=== PATIENT | female | born 1935 | race Caucasian/White ===

== ENCOUNTER 2016-04-19 13:15 | Outpatient (RCR) | payer MEDICARE ==
[2016-04-19 13:33] LABS: BASOPHILS # (AUTO) 0.1 10^3/uL (0.0-0.1); BASOPHILS % (AUTO) 1 % (0-10); EOSINOPHILS # (AUTO) 0.1 10^3/uL (0.0-0.3); EOSINOPHILS % (AUTO) 1 % (0-10); LYMPHOCYTES # (AUTO) 2.7 X 10^3 (1.0-4.0); LYMPHOCYTES % (AUTO) 25 % (12-44); MEAN CORPUSCULAR HEMOGLOBIN 31 PG (25-34); MEAN CORPUSCULAR HGB CONC 35 G/DL (32-36); MEAN CORPUSCULAR VOLUME 90 FL (80-99); MEAN PLATELET VOLUME 10.3 FL (7.4-10.4); MONOCYTES # (AUTO) 0.7 X 10^3 (0.0-1.0); MONOCYTES % (AUTO) 6 % (0-12); NEUTROPHILS # (AUTO) 7.4 X 10^3 (1.8-7.8); NEUTROPHILS % (AUTO) 68 % (42-75); PLATELET COUNT 191 10^3/uL (130-400); RED BLOOD COUNT 4.44 10^6/uL (4.35-5.85); RED CELL DISTRIBUTION WIDTH 13.4 % (10.0-14.5); WHITE BLOOD COUNT 10.9 10^3/uL (4.3-11.0)
[2016-04-19 14:26] LABS: ALANINE AMINOTRANSFERASE 17 U/L (0-55); ALBUMIN 4.4 G/DL (3.2-4.5); ANION GAP 9 MMOL/L (5-14); ASPARTATE AMINO TRANSFERASE 20 U/L (5-34); BILIRUBIN,TOTAL 0.4 MG/DL (0.1-1.0); BLOOD UREA NITROGEN 17 MG/DL (7-18); BUN/CREATININE RATIO 20; CALCIUM 9.6 MG/DL (8.5-10.1); CARBON DIOXIDE 23 MMOL/L (21-32); CHLORIDE 108 MMOL/L (98-107); CREATININE SERUM 0.87 MG/DL (0.60-1.30); GFR ESTIMATED > 60; GLUCOSE 132 MG/DL (70-105); POTASSIUM 4.1 MMOL/L (3.6-5.0); SODIUM 140 MMOL/L (135-145); TOTAL PROTEIN 7.6 G/DL (6.4-8.2)
== END 2016-07-18 | disposition home or self-care (01) ==
LOC: ONC 13:15
PROVIDERS: ATTEND Internal Medicine Hematology & Oncology
DX: Z08 Encounter for follow-up examination after completed treatment for malignant neoplasm (principal); Z85.3 Personal history of malignant neoplasm of breast; N18.3 Chronic kidney disease, stage 3 (moderate); I48.91 Unspecified atrial fibrillation; Z79.899 Other long term (current) drug therapy
CPT/HCPCS: 36415; 80053; 85025; 99213

== ENCOUNTER 2017-04-11 13:04 | Outpatient (RCR) | payer MEDICARE ==
[2017-04-11 13:32] LABS: BASOPHILS # (AUTO) 0.1 10^3/uL (0.0-0.1); BASOPHILS % (AUTO) 1 % (0-10); EOSINOPHILS # (AUTO) 0.2 10^3/uL (0.0-0.3); EOSINOPHILS % (AUTO) 2 % (0-10); HEMATOCRIT 39 % (35-52); HEMOGLOBIN 13.7 G/DL (11.5-16.0); LYMPHOCYTES # (AUTO) 2.7 X 10^3 (1.0-4.0); LYMPHOCYTES % (AUTO) 28 % (12-44); MEAN CORPUSCULAR HEMOGLOBIN 31 PG (25-34); MEAN CORPUSCULAR HGB CONC 35 G/DL (32-36); MEAN CORPUSCULAR VOLUME 88 FL (80-99); MEAN PLATELET VOLUME 10.4 FL (7.4-10.4); MONOCYTES # (AUTO) 0.7 X 10^3 (0.0-1.0); MONOCYTES % (AUTO) 7 % (0-12); NEUTROPHILS % (AUTO) 63 % (42-75); PLATELET COUNT 208 10^3/uL (130-400); RED BLOOD COUNT 4.45 10^6/uL (4.35-5.85); RED CELL DISTRIBUTION WIDTH 13.1 % (10.0-14.5); WHITE BLOOD COUNT 9.6 10^3/uL (4.3-11.0)
[2017-04-11 13:50] LABS: ALANINE AMINOTRANSFERASE 16 U/L (0-55); ALKALINE PHOSPHATASE 104 U/L (40-136); BILIRUBIN,TOTAL 0.3 MG/DL (0.1-1.0); BUN/CREATININE RATIO 22; CALCIUM 9.5 MG/DL (8.5-10.1); CARBON DIOXIDE 24 MMOL/L (21-32); CHLORIDE 109 MMOL/L (98-107); CREATININE SERUM 0.82 MG/DL (0.60-1.30); GFR ESTIMATED > 60; GLUCOSE 123 MG/DL (70-105); POTASSIUM 4.2 MMOL/L (3.6-5.0); SODIUM 141 MMOL/L (135-145); TOTAL PROTEIN 7.8 GM/DL (6.4-8.2)
== END 2017-07-10 | disposition home or self-care (01) ==
LOC: ONC 13:04
PROVIDERS: ATTEND Internal Medicine Hematology & Oncology
DX: Z08 Encounter for follow-up examination after completed treatment for malignant neoplasm (principal); Z85.3 Personal history of malignant neoplasm of breast; N18.3 Chronic kidney disease, stage 3 (moderate); I48.91 Unspecified atrial fibrillation; Z79.899 Other long term (current) drug therapy
CPT/HCPCS: 36591; 80053; 85025

== ENCOUNTER 2018-04-15 10:42 | Outpatient (RCR) | payer MEDICARE ==
[2018-04-15 11:36] LABS: BASOPHILS # (AUTO) 0.1 10^3/uL (0.0-0.1); BASOPHILS % (AUTO) 1 % (0-10); EOSINOPHILS # (AUTO) 0.1 10^3/uL (0.0-0.3); EOSINOPHILS % (AUTO) 1 % (0-10); HEMATOCRIT 40 % (35-52); HEMOGLOBIN 13.6 G/DL (11.5-16.0); LYMPHOCYTES # (AUTO) 2.5 X 10^3 (1.0-4.0); LYMPHOCYTES % (AUTO) 26 % (12-44); MEAN CORPUSCULAR HEMOGLOBIN 31 PG (25-34); MEAN CORPUSCULAR HGB CONC 34 G/DL (32-36); MEAN CORPUSCULAR VOLUME 91 FL (80-99); MEAN PLATELET VOLUME 10.7 FL (7.4-10.4); MONOCYTES # (AUTO) 0.7 X 10^3 (0.0-1.0); MONOCYTES % (AUTO) 8 % (0-12); NEUTROPHILS % (AUTO) 64 % (42-75); PLATELET COUNT 159 10^3/uL (130-400); WHITE BLOOD COUNT 9.3 10^3/uL (4.3-11.0)
[2018-04-15 12:01] LABS: ALANINE AMINOTRANSFERASE 9 U/L (0-55); ALBUMIN 4.3 GM/DL (3.2-4.5); ALKALINE PHOSPHATASE 88 U/L (40-136); BILIRUBIN,TOTAL 0.5 MG/DL (0.1-1.0); BUN/CREATININE RATIO 18; CALCIUM 9.6 MG/DL (8.5-10.1); CARBON DIOXIDE 26 MMOL/L (21-32); CHLORIDE 107 MMOL/L (98-107); CREATININE SERUM 0.83 MG/DL (0.60-1.30); GFR ESTIMATED > 60; GLUCOSE 131 MG/DL (70-105); POTASSIUM 3.9 MMOL/L (3.6-5.0); SODIUM 141 MMOL/L (135-145); TOTAL PROTEIN 7.6 GM/DL (6.4-8.2)
[2018-07-01] MEDS ORDERED: OMEP20CA12 PO (12:03)
[2018-07-01] MEDS ORDERED: AMLO10TA7 PO (12:03)
[2018-07-01] MEDS ORDERED: SERT50TA9 PO (12:03)
[2018-07-01] MEDS ORDERED: MIRA25TA PO (12:03)
[2018-07-01] MEDS ORDERED: AMIO200T4 PO (12:03)
[2018-07-09] MEDS ORDERED: TRAM50TA2 PO (11:05)
== END 2018-07-14 | disposition home or self-care (01) ==
LOC: ONC 10:42
PROVIDERS: ATTEND Internal Medicine Hematology & Oncology
DX: Z08 Encounter for follow-up examination after completed treatment for malignant neoplasm (principal); Z85.3 Personal history of malignant neoplasm of breast; N18.3 Chronic kidney disease, stage 3 (moderate); I48.91 Unspecified atrial fibrillation; Z79.899 Other long term (current) drug therapy
CPT/HCPCS: 36415; 80053; 85025

== ENCOUNTER 2018-07-01 12:00 | Outpatient (CLI) | payer MEDICARE ==
[~2018-07-01] VITALS: Ht 175.3 cm; Wt 63.5 kg
[2018-07-01] MEDS ORDERED: AMLO10TA7 PO (12:03)
[2018-07-01] MEDS ORDERED: AMIO200T4 PO (12:03)
[2018-07-01] MEDS ORDERED: OMEP20CA12 PO (12:03)
[2018-07-01] MEDS ORDERED: MIRA25TA PO (12:03)
[2018-07-01] MEDS ORDERED: SERT50TA9 PO (12:03)
== END 2018-07-01 13:20 | disposition home or self-care (01) ==
LOC: PREOP 12:00
PROVIDERS: ATTEND Surgery
DX: Z01.818 Encounter for other preprocedural examination (principal)

== ENCOUNTER 2018-07-09 08:01 | Day surgery (SDC) | payer MEDICARE ==
[~2018-07-09] VITALS: Ht 175.3 cm; Wt 63.5 kg
[~2018-07-09 08:01] MED LIST: AMIO200T4 PO; AMLO10TA7 PO; MIRA25TA PO; OMEP20CA12 PO; SERT50TA9 PO
--- OUTSIDE RECORDS SUMMARY | 2018-07-09 08:04 | XMS REPORT ---
Author Author [facility] Medical Staff Organization [facility] [employer] [facility] Address [address] [place], [place] [address] Phone [phone] Summary purpose TRANSITION OF CARE AUTO GENERATION Chief Complaint and Reason for Visit Admit Diagnosis 1 HEAD INJURY UNSPECIFIED Problem list No authorized problems tracked for continuity of care are available for this visit. Encounters No authorized problems tracked for encounter diagnoses are available for this visit. Medications No medications recorded for this patient visit Allergies, adverse reactions, alerts Allergen Category Ingredient Status Reaction Severity Onset Sulfa (Sulfonamide Antibiotics) Drug Allergy Sulfa (Sulfonamide Antibiotics) Confirmed or Verified morphine Drug Allergy morphine Confirmed or Verified Polytrim Drug Allergy Polytrim Confirmed or Verified Swelling Moderate Adult Polytrim Drug Allergy trimethoprim Confirmed or Verified Swelling Moderate Adult Polytrim Drug Allergy Polymyxin B Confirmed or Verified Swelling Moderate Adult Immunizations No immunizations recorded for this patient visit Relevant diagnostic tests and/or laboratory data No authorized results are available for this patient visit History of procedures Procedure Code Code Type Description Date Performed Performing Physician A0427 CPT-4 ALS1-EMERGENCY 12-16-2014 KALEB CORTEZ A0425 CPT-4 GROUND MILEAGE 12-16-2014 KALEB CORTEZ Functional status No functional or cognitive status observations are available for this visit. Vital signs No authorized vital signs are available for this visit. Social history No Social History or smoking status observations were recorded for this visit. ( Unknown if ever smoked.) Treatment Plan No treatment plan text is available for this visit. Hospital discharge instructions No discharge instruction text is available for this visit.
--- OUTSIDE RECORDS SUMMARY | 2018-07-09 08:05 | XMS REPORT ---
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 Name Role Phone Ludwin Leong PCP Ludwin Leong PreferredProvider Allergies and Adverse Reactions Name Reaction Notes Tape Poison andrzej Plan of Treatment Planned Activity Comments Planned Date Planned Time Plan/Goal MAMMOGRAPHY, UNILATERAL, DX DIGITAL 04/09/2018 12:00 AM Medications Active Name Start Date Estimated Completion Date SIG Comments Aspir-81 81 mg oral tablet,delayed release (DR/EC) take 1 tablet (81 mg ) by oral route once daily Pacerone 200 mg oral tablet 11/19/2012 take 1/2 tablet (200 mg) by oral route once daily sertraline 100 mg oral tablet 01/27/2014 TAKE ONE TABLET BY MOUTH TWICE DAILY omeprazole 20 mg oral capsule,delayed release(DR/EC) 05/02/2015 TAKE ONE CAPSULE BY MOUTH ONCE DAILY BEFORE A MEAL Diflucan 150 mg oral tablet 05/20/2017 take 1 tablet (150 mg) by oral route once levothyroxine 75 mcg oral tablet 10/31/2017 take 1 tablet daily Myrbetriq 25 mg oral tablet extended release 24 hr 03/18/2018 TAKE ONE TABLET BY MOUTH ONCE DAILY (SWALLOW WHOLE WITH WATER AND DO NOT CRUSH, CHEW, AND/OR DIVIDE) amlodipine 10 mg oral tablet 03/31/2018 TAKE ONE TABLET BY MOUTH ONCE DAILY Name Start Date Expiration Date SIG Comments NORVASC 5MG TAB 5 each 09/05/2010 10/05/2010 1QD - TAKE ONE TABLET BY MOUTH EVERY DAY Xanax 0.25 mg oral tablet 09/22/2010 10/14/2010 [id number] - TAKE ONE TABLET BY MOUTH EVERY 12 HOURS NEEDED FOR ANXIETY Celexa 20 mg oral tablet 12/15/2010 01/14/2011 take 1 tablet (20 mg) by oral route once daily in the evening for 30 days Zithromax Z-Jarad 250 mg oral tablet 05/16/2011 05/21/2011 take 2 tablets ( 500 mg) by oral route once daily for 1 day then 1 tablet (250 mg) by oral route once daily for 4 days sertraline 100 mg oral tablet 11/19/2012 11/14/2013 take 1 tablet bid levothyroxine 50 mcg oral tablet 02/11/2013 03/13/2013 TAKE ONE TABLET BY MOUTH EVERY DAY HYDROCHLOROTHIAZIDE 25MG TAB 25MG each 03/31/2013 04/30/2013 TAKE ONE TABLET BY MOUTH EVERY DAY Prilosec 20 mg oral capsule,delayed release(DR/EC) 12/14/2013 03/09/2015 take 1 capsule (20 mg) by oral route once daily before a meal for 90 days meloxicam 15 mg oral tablet 12/14/2013 12/09/2014 take 1 tablet (15 mg) by oral route once daily prn Zithromax Z-Jarad 250 mg oral tablet 06/01/2014 06/06/2014 take 2 tablets (500 mg) by oral route once daily for 1 day then 1 tablet (250 mg) by oral route once daily for 4 days prednisone 20 mg oral tablet 07/13/2014 07/23/2014 take 2 tablets (40 mg) by oral route once daily for 10 days Lotrisone 1-0.05 % topical cream 09/27/2014 11/22/2014 apply to the affected and surrounding areas of skin by topical route 2 times per day in the morning and evening for 2 weeks metoprolol succinate 50 mg oral tablet extended release 24 hr 12/22/201404/21 take 1 tablet (50 mg) by oral route once daily for 30 days sertraline 50 mg oral tablet 12/22/2014 11/17/2015 take 1 tablet by oral route 2 times a day for 30 days Valtrex 1 gram oral tablet 04/04/2015 04/24/2015 take 1 tablet (1,000 mg) by oral route 3 times per day for 10 days hydrochlorothiazide 25 mg oral tablet 02/14/2017 02/09/2018 TAKE ONE TABLET BY MOUTH ONCE DAILY alprazolam 0.25 mg oral tablet 03/08/2017 06/04/2017 TAKE ONE TABLET BY MOUTH EVERY 12 HOURS NEEDED FOR ANXIETY sertraline 50 mg oral tablet 04/17/2017 04/17/2017 TAKE ONE TABLET BY MOUTH TWICE DAILY donepezil 5 mg oral tablet 05/20/2017 06/19/2017 take 1 tablet (5 mg) by oral route once daily in the evening for 30 days omeprazole 20 mg oral capsule,delayed release(DR/EC) 08/09/2017 08/09/2017 TAKE ONE CAPSULE BY MOUTH ONCE DAILY BEFORE MEAL(S) Discontinued Name Start Date Discontinued Date SIG Comments clonidine HCl 0.1 mg oral tablet 01/30/2010 Diovan 320 mg oral tablet 11/19/2012 take 1 tablet (320 mg) by oral route once daily digoxin 250 mcg oral tablet 11/19/2012 take 1 tablet (250 mcg) by oral route once daily Hydrochlorothiazide Oral 11/19/2012 warfarin 5 mg oral tablet 08/24/2013 take 1 tablet (5 mg) by oral route once daily Levaquin 500 mg oral tablet 01/30/2010 take 1 tablet (500 mg) by oral route once daily for 10 days DIOVAN 320MG TAB 320 each 01/03/2010 02/02/2010 1QD - TAKE ONE TABLET BY MOUTH EVERY DAY Tylenol 325 mg oral tablet 01/30/2010 01/15/2013 take 1 - 2 tablets (325 -650 mg) by oral route every 4-6 hours as needed lisinopril 20 mg oral tablet 12/15/2010 11/19/2012 take 1 tablet (20 mg) by oral route once daily pravastatin 20 mg oral tablet 12/03/2016 take 1 tablet (20 mg) by oral route once daily Medrol (Jarad) 4 mg oral tablets,dose pack 01/15/2013 04/16/2013 take as directed for 6 days Norvasc oral Tablet 5 mg 03/01/2010 12/03/2016 Oral 1 tablet (5 mg) by oral route daily 1 metoprolol tartrate 50 mg oral tablet 02/14/2015 12/03/2016 TAKE ONE TABLET BY MOUTH TWICE DAILY sertraline 100 mg oral tablet 04/05/2015 12/03/2016 TAKE ONE TABLET BY MOUTH TWICE DAILY Problem List Description Status Onset Anxiety Active Heart disease Active Thyroid disorder Active Vital Signs Date Time BP-Sys(mm[Hg] BP-Velvet(mm[Hg]) HR(bpm) RR(rpm) Temp WT HT HC BMI BSA BMI Percentile O2 Sat(%) 05/20/2017 10:21:00 AM 145 mmHg 71 mmHg 74 bpm 18 rpm 97.6 F 147 lbs 66 in 23.7262 kg/m 1.7621 m 94 % 12/03/2016 2:17:00 PM 132 mmHg 62 mmHg 78 bpm 18 rpm 100.5 F 142.375 lbs 66 in 22.98 kg/m2 1.73 m2 94 % 04/04/2015 1:33:00 PM 126 mmHg 72 mmHg 67 bpm 18 rpm 97.7 F 161 lbs 66 in 25.9858 kg/m 1.8441 m 92 % 12/22/2014 10:43:00 AM 152 mmHg 70 mmHg 64 bpm 18 rpm 98.2 F 158 lbs 66 in 25.50 kg/m2 1.83 m2 09/23/2014 10:50:00 AM 128 mmHg 62 mmHg 64 bpm 16 rpm 97.8 F 165 lbs 66 in 26.6314 kg/m 1.8669 m 07/13/2014 1:57:00 PM 146 mmHg 82 mmHg 72 bpm 18 rpm 98.6 F 161 lbs 66 in 25.99 kg/m2 1.84 m2 12/14/2013 10:40:00 AM 136 mmHg 62 mmHg 64 bpm 18 rpm 98 F 161 lbs 66 in 25.9858 kg/m 1.8441 m 08/24/2013 1:25:00 PM 146 mmHg 90 mmHg 64 bpm 18 rpm 97.3 F 162.125 lbs 66 in 26.17 kg/m2 1.85 m2 97 % 04/16/2013 9:26:00 AM 128 mmHg 64 mmHg 72 bpm 18 rpm 98 F 162 lbs 66 in 26.1472 kg/m 1.8498 m 01/15/2013 11:20:00 AM 152 mmHg 70 mmHg 64 bpm 18 rpm 97.5 F 157 lbs 66 in 25.34 kg/m2 1.82 m2 11/19/2012 10:30:00 AM 148 mmHg 68 mmHg 64 bpm 18 rpm 98.2 F 155 lbs 66 in 25.0174 kg/m 1.8094 m 05/16/2011 2:05:00 PM 138 mmHg 74 mmHg 68 bpm 18 rpm 99.5 F 157.25 lbs 01/03/2011 2:48:00 PM 126 mmHg 68 mmHg 60 bpm 156 lbs 12/15/2010 10:53:00 AM 140 mmHg 70 mmHg 58 bpm 20 rpm 98.1 F 157 lbs 156.5 in 4.5068 kg/m 2.8042 m 05/17/2010 9:28:00 AM 136 mmHg 72 mmHg 64 bpm 16 rpm 97.4 F 158 lbs 03/23/2010 9:26:00 AM 142 mmHg 68 mmHg 64 bpm 20 rpm 97.4 F 153 lbs 03/01/2010 10:44:00 AM 170 mmHg 88 mmHg 72 bpm 20 rpm 97.9 F 155.4 lbs 02/07/2010 2:27:00 PM 142 mmHg 88 mmHg 60 bpm 20 rpm 97.1 F 150 lbs 02/02/2010 1:04:00 PM 142 mmHg 80 mmHg 74 bpm 18 rpm 98.2 F 151 lbs 01/30/2010 8:44:00 AM 138 mmHg 80 mmHg 64 bpm 20 rpm 97.7 F 155 lbs 11/23/2009 12:23:00 PM 164 mmHg 80 mmHg 78 bpm 20 rpm 98.1 F 158 lbs 07/14/2009 3:16:00 PM 156 mmHg 86 mmHg 80 bpm 98.9 F 156.5 lbs Social History Name Description Comments denies smoking denies alcohol use Lives with spouse Tobacco Never smoker History of Procedures Date Ordered Description Order Status 04/04/2015 12:00 AM Decadron, Per [address] [facility]# [address]-93 Reviewed 04/04/2015 12:00 AM Depo-Medrol, Per 80 Mg [facility]#[address]-14 Reviewed 04/04/2015 12:00 AM MAMMOGRAM ONE BREAST Reviewed 05/30/2011 12:00 AM ASSAY THYROID STIM HORMONE Reviewed 04/05/2016 12:00 AM MAMMOGRAM SCREENING Reviewed 12/03/2016 12:00 AM X-RAY EXAM OF PELVIS Reviewed 12/03/2016 12:00 AM X-RAY EXAM OF HIP Reviewed 03/18/2017 12:00 AM MAMMOGRAM SCREENING Returned 06/24/2012 12:00 AM Flu Injection 3 Years And Above [facility]# [address]-52 RHC Reviewed 08/24/2013 12:00 AM X-RAY EXAM OF HIP Reviewed 11/23/2009 12:00 AM ROUTINE VENIPUNCTURE Reviewed 11/23/2009 12:00 AM COMPLETE CBC W/AUTO DIFF WBC Reviewed 11/23/2009 12:00 AM COMPREHEN METABOLIC PANEL Reviewed 11/23/2009 12:00 AM CHEST X-RAY 2VW FRONTAL&LATL Reviewed 11/23/2009 12:00 AM THER/PROPH/DIAG INJ SC/IM Reviewed 11/23/2009 12:00 AM Bicillin CR (1.2) [facility]# [id number][facility] Reviewed 05/17/2010 12:00 AM FLU VACCINE 3 YRS & > IM Reviewed 04/13/2014 12:00 AM COMPUTER DX MAMMOGRAM ADD-ON Reviewed 09/23/2014 12:00 AM Decadron [address] [facility]# [address]-20 Reviewed 09/23/2014 12:00 AM Depo-Medrol [address] [facility]#[address]-88 Reviewed 01/03/2011 12:00 AM Decadron Inj.1mg-([place]) [facility] #[id number] Reviewed 01/03/2011 12:00 AM Depo-Medrol 80 Mg Im/[facility] [place] [facility] [id number] Reviewed 12/22/2014 12:00 AM COMPLETE CBC W/AUTO DIFF WBC Reviewed 12/22/2014 12:00 AM COMPREHEN METABOLIC PANEL Reviewed 12/22/2014 12:00 AM ASSAY THYROID STIM HORMONE Reviewed 12/22/2014 12:00 AM CHEST X-RAY 2VW FRONTAL&LATL Reviewed 12/22/2014 12:00 AM PNEUMOCOCCAL VACC 13 THUAN IM Reviewed 12/22/2014 12:00 AM TDAP VACCINE 7 YRS/> IM Reviewed Results Summary Date and Description Results 11/23/2009 1:10 PM WBC 18.8 RBC 4.01 HGB 13.30 g/dLHCT 38.20 %MCV 95.0 fLMCH 33.20 pgMCHC 34.80 g/dLRDW SD 45 RDW CV 13.0 %MPV 10.40 fLPLT 200 NRBC# 0.00 NRBC% 0.0 %NEUT 83.70 %%LYMP 9.60 %%MONO 6.10 %%EOS 0.40 %%BASO 0.20 %#NEUT 15.69 #LYMP 1.81 #MONO 1.14 #EOS 0.08 #BASO 0.04 MANUAL DIFF PENDING GLUCOSE 98.0 mg/dLSODIUM 140.0 mmol/LPOTASSIUM 3.40 mmol/LCHLORIDE 105.0 mmol/LCO2 25.0 mmol/LBUN 15.0 mg/dLCREATININE 0.80 mg/dLSGOT/AST 22.0 IU/LSGPT/ALT 22.0 IU/ LALK PHOS 97.0 IU/LTOTAL PROTEIN 7.90 g/dLALBUMIN 4.0 g/dLTOTAL BILI 0.50 mg/ dLCALCIUM 9.30 mg/dLAGE 74 GFR NonAA 70 GFR AA 85 eGFR >60 mL/min/1.73 m2eGFR AA * >60 12/22/2014 11:55 AM GLUCOSE 108.0 mg/dLSODIUM 142.0 mmol/LPOTASSIUM 4.0 mmol/ LCHLORIDE 108.0 mmol/LCO2 24.0 mmol/LBUN 16.0 mg/dLCREATININE 0.80 mg/dLSGOT/ AST 17.0 IU/LSGPT/ALT 17.0 IU/LALK PHOS 75.0 IU/LTOTAL PROTEIN 6.70 g/dLALBUMIN 3.90 g/dLTOTAL BILI 0.80 mg/dLCALCIUM 9.20 mg/dLAGE 79 GFR NonAA 69 GFR AA 84 eGFR >60 mL/min/1.73 m2eGFR AA* >60 WBC 10.0 RBC 3.95 HGB 12.50 g/dLHCT 36.60 % MCV 93.0 fLMCH 31.60 pgMCHC 34.20 g/dLRDW SD 47 RDW CV 14.0 %MPV 10.20 fLPLT 178 NRBC# 0.00 NRBC% 0.0 %NEUT 65.40 %%LYMP 24.0 %%MONO 7.80 %%EOS 2.30 %%BASO 0.50 %#NEUT 6.55 #LYMP 2.40 #MONO 0.78 #EOS 0.23 #BASO 0.05 MANUAL DIFF NOT IND TSH 3.320 uIU/mL History Of Immunizations Name Date Admin Mfg Name Mfg Code Trade Name Lot# Route Inj Vis Given Vis Pub CVX Influenza 06/24/2012 sanofi pasteur PMC FLUZONE [id number] Intramuscular Left Arm 06/24/2012 12/03/2011 141 Tdap 12/22/2014 sanofi pasteur PMC ADACEL [id number] Intramuscular Left Deltoid 12/22/2014 10/09/2012 115 X 12/22/2014 Hlbqg-Vlaqbb-Mitzgom-Praxis WAL Prevnar [id number] Intramuscular Right Deltoid 12/22/2014 07/30/2012 100 Pneumococcal 12/22/2014 Nfnhn-Vtujvh-Vwjkass-Praxis WAL PREVNAR 13 [id number] Intramuscular Right Deltoid 12/22/2014 07/30/2012 133 X 12/22/2014 Sfzvh-Zwuciq-Mktijdt-Praxis WAL PREVNAR 13 [id number] Intramuscular Right Deltoid 12/22/2014 07/30/2012 133 Tdap 12/22/2014 sanofi pasteur PMC ADACEL [id number] Intramuscular Left Deltoid 12/22/2014 07/30/2012 115 Influenza 04/01/2015 Not Entered NE Not Entered Not Entered Not Entered 06/03/2017 06/03/2017 141 Influenza 01/19/2016 Not Entered NE FLUZONE Intramuscular Right Arm 06/03/2017 141 Influenza 01/30/2017 [employer] pasteur PMC FLUZONE-HIGH DOSE UI 824 AA Intramuscular Right Arm 03/14/2017 01/07/2015 135 History of Past Illness Name Date of Onset Comments Anxiety Breast disorder, unspecified Cancer Heart disease Thyroid disorder Hypertension Jul 14 2009 3:29PM Depression and anxiety Jul 14 2009 3:29PM Sinusitis, Acute Nov 23 2009 12:57PM Pharyngitis, Acute Nov 23 2009 12:57PM Sinusitis, Acute Nov 23 2009 12:28PM Pharyngitis, Acute Nov 23 2009 12:28PM Cough Nov 23 2009 12:28PM Hypertension Jan 30 2010 8:53AM Atrial Fibrillation Jan 30 2010 8:53AM Osteoarthritis Jan 30 2010 8:53AM Essential Hypertension Feb 02 2010 1:07PM Hypertension Feb 07 2010 2:32PM Essential Hypertension Mar 01 2010 10:50AM Hypertension Mar 23 2010 9:29AM Hypertension May 17 2010 9:27AM Flu May 17 2010 9:27AM Hypertension GERD Atrial fibrillation Depression Hard of hearing, bilateral Contact Dermatitis Jan 03 2011 2:45PM Hypertension Dec 15 2010 10:54AM Osteoarthritis Dec 15 2010 10:54AM Hypothyroidism, Acquired May 16 2011 2:09PM Upper Respiratory Infections May 16 2011 2:09PM Flu Jul 14 2012 9:35AM Hypertension Nov 19 2012 10:40AM Depression and anxiety Nov 19 2012 10:40AM Gout Jan 15 2013 11:26AM Atrial Fibrillation Apr 16 2013 9:36AM Other fall from one level to another Apr 16 2013 9:36AM Head Injury, Closed (No LOC) Apr 16 2013 9:36AM Pain in joint; Left Hip Aug 24 2013 1:34PM Contusion of head Apr 16 2013 9:36AM OA (osteoarthritis) of hip Dec 14 2013 10:47AM Screening Mammogram For High Risk Patient Apr 13 2014 1:02PM Shingles Jul 13 2014 2:01PM Rhus dermatitis Sep 23 2014 10:58AM Hypertension Dec 22 2014 10:53AM Hypothyroidism, Acquired Dec 22 2014 10:53AM Fall Dec 22 2014 10:53AM Cough Dec 22 2014 10:53AM Concussion Dec 27 2014 2:02PM Head Open Wound Dec 27 2014 2:02PM Shingles Apr 04 2015 1:36PM Screening Mammogram For High Risk Patient Apr 04 2015 4:57PM Screening Mammogram For High Risk Patient Apr 05 2016 2:30PM Right hip pain Dec 03 2016 2:35PM Screening Mammogram For High Risk Patient Mar 18 2017 2:02PM Dementia May 20 2017 10:22AM Overactive bladder May 20 2017 10:22AM Thrush May 20 2017 10:22AM Screening mammogram for high-risk patient Apr 09 2018 3:13PM Payers Insurance Name Company Name Plan Name Plan Number Policy Number Policy Group Number Start Date Medicare Part A Medicare Part A [id number] N/A [facility] [id number] June Medicare Part A Medicare Part A [id number] N/A Medicare Part A Medicare - Lab/Xray [id number] N/A Medicare Part B Medicare Of [place] [id number] Sunday, May 03, 1998 History of Encounters Visit Date Visit Type Provider 05/20/2017 Office visit Ludwin Leong MD 12/03/2016 Office visit Tyler Conley NP 04/04/2015 Office visit Ludwin Leong MD 12/27/2014 Office visit Candido August MD 12/22/2014 Office visit 12/22/2014 Office visit Ludwin Leong MD 12/17/2014 [facility] Candido August MD 09/23/2014 Office visit Ludwin Leong MD 07/13/2014 Office visit Ludwin Leong MD 12/14/2013 Office visit Ludwin Leong MD 08/24/2013 Office visit Ludwin Leong MD 04/16/2013 Office visit Ludwin Leong MD 01/15/2013 Office visit Ludwin Leong MD 11/19/2012 Office visit Ludwin Leong MD 06/24/2012 Nurse visit Ludwin Leong MD 05/16/2011 Office visit Willa Alford APRN 01/03/2011 Office visit Candido Oliva PA-C 12/15/2010 Office visit Ludwin Leong MD 05/17/2010 Office visit Ludwin Leong MD 03/23/2010 Office visit Ludwin Leong MD 03/01/2010 Office visit Ludwin Leong MD 02/07/2010 Office visit Ludwin Leong MD 02/02/2010 Office visit Ludwin Leong MD 01/30/2010 Office visit Ludwin Leong MD 11/23/2009 Office visit Zelda WIGGINS 07/14/2009 Office visit Ludwin Leong MD 02/18/2009 Office visit Ludwin Leong MD
--- OUTSIDE RECORDS SUMMARY | 2018-07-09 08:05 | XMS REPORT ---
Author Author Ludwin Leong [facility] Address [address] [place], [place] [address] Care Team Providers Care Tourist Camp Attendant Name Role Phone Ludwin Leong PCP Ludwin [...] Xanax 0.25 mg oral tablet 09/22/2010 10/14/2010 [id number] - TAKE ONE TABLET BY MOUTH EVERY [...] 04/04/2015 12:00 AM Decadron, Per 1 Mg [facility]# [address]-13 Reviewed 04/04/2015 12:00 AM Depo-Medrol, Per 80 Mg [facility]#[address]-24 Reviewed 04/04/2015 12:00 AM MAMMOGRAM ONE BREAST Reviewed 05/30/2011 12:00 AM ASSAY THYROID STIM HORMONE Reviewed 04/05/2016 12:00 AM MAMMOGRAM SCREENING Reviewed 12/03/2016 12:00 AM X-RAY EXAM OF PELVIS Reviewed 12/03/2016 12:00 AM X-RAY EXAM OF HIP Reviewed 03/18/2017 12:00 AM MAMMOGRAM SCREENING Returned 06/24/2012 12:00 AM Flu Injection 3 Years And Above [facility]# [address]-00 RHC Reviewed 08/24/2013 12:00 AM X-RAY EXAM OF HIP Reviewed 11/23/2009 12:00 AM ROUTINE VENIPUNCTURE Reviewed 11/23/2009 12:00 AM COMPLETE CBC W/AUTO DIFF WBC Reviewed 11/23/2009 12:00 AM COMPREHEN METABOLIC PANEL Reviewed 11/23/2009 12:00 AM CHEST X-RAY 2VW FRONTAL&LATL Reviewed 11/23/2009 12:00 AM THER/PROPH/DIAG INJ SC/IM Reviewed 11/23/2009 12:00 AM Bicillin CR (1.2) [facility]# [id number]--[facility] Reviewed 05/17/2010 12:00 AM FLU VACCINE 3 YRS & > IM Reviewed 04/13/2014 12:00 AM COMPUTER DX MAMMOGRAM ADD-ON Reviewed 09/23/2014 12:00 AM Decadron 8 mg [facility]# [address]-59 Reviewed 09/23/2014 12:00 AM Depo-Medrol 80 mg [facility]#[address]-81 Reviewed 01/03/2011 12:00 AM Decadron Inj.1mg-([place]) [facility] #[id number] Reviewed 01/03/2011 12:00 AM Depo-Medrol 80 Mg Im/[facility] [place] [facility] [id number] Reviewed 12/22/2014 12:00 AM COMPLETE CBC W/AUTO [...] CVX Influenza 06/24/2012 sanofi pasteur PMC FLUZONE [id number] Intramuscular Left Arm 06/24/2012 12/03/2011 141 Tdap 12/22/2014 sanofi pasteur PMC ADACEL [id number] Intramuscular Left Deltoid 12/22/2014 10/09/2012 115 X 12/22/2014 Bdhyr-Nymgya-Qpitxml-Praxis WAL Prevnar [id number] Intramuscular Right Deltoid 12/22/2014 07/30/2012 100 Pneumococcal 12/22/2014 Pggar-Arycvm-Rebczvr-Praxis WAL PREVNAR 13 [id number] Intramuscular Right Deltoid 12/22/2014 07/30/2012 133 X 12/22/2014 Iispg-Opmodo-Abscbze-Praxis WAL PREVNAR 13 [id number] Intramuscular Right Deltoid 12/22/2014 07/30/2012 133 Tdap 12/22/2014 sanofi pasteur PMC ADACEL [id number] Intramuscular Left Deltoid 12/22/2014 07/30/2012 115 Influenza 04/01/2015 Not Entered NE Not Entered Not Entered Not Entered 06/03/2017 06/03/2017 141 Influenza 01/19/2016 Not Entered NE FLUZONE Intramuscular Right Arm 06/03/2017 141 Influenza 01/30/2017 [employer] pasteur PMC FLUZONE-HIGH DOSE UI 824 AA [...] Date Medicare Part A Medicare Part A [id number] N/A [facility] [id number] June Medicare Part A Medicare Part A [id number] N/A Medicare Part A Medicare - Lab/Xray [id number] N/A Medicare Part B Medicare Of [place] [id number] Sunday, May 03, 1998 History of Encounters Visit Date Visit Type Provider 05/20/2017 Office visit Ludwin Leong MD 12/03/2016 Office visit Tyler Conley NP 04/04/2015 Office visit Ludwin Leong MD 12/27/2014 Office visit Candido August MD 12/22/2014 Office visit 12/22/2014 Office visit Ludwin Leong MD 12/17/2014 [facility] Candido August MD 09/23/2014 Office visit Ludwin Leong MD 07/13/2014 Office visit Ludwin Leong MD 12/14/2013 Office visit Ludwin Leong MD 08/24/2013 Office visit Ludwin Leong MD 04/16/2013 Office visit Ludwin Leong MD 01/15/2013 Office visit Ludwin Leong MD 11/19/2012 Office visit Ludwin Leong MD 06/24/2012 Nurse visit Ludwin Leong MD 05/16/2011 Office visit Willa Alford APRN 01/03/2011 Office visit Candido Olvia PA-C 12/15/2010 Office visit Ludwin Leong MD [...]
--- OUTSIDE RECORDS SUMMARY | 2018-07-09 08:06 | XMS REPORT ---
Author Author Ludwin Leong [facility] Address [address] [place], [place] [id number] Care Team Providers Care Vp Corporate Development Name Role Phone Ludwin Leong PCP Unavailable Ludwin Leong PreferredProvider Unavailable Allergies and Adverse Reactions Name Reaction Notes Tape Plan of Treatment Planned Activity Comments Planned Date Planned Time Plan/Goal Diagnostic Mammogram 04/05/2016 12:00 AM Medications Active Name Start Date Estimated Completion Date SIG Comments Aspir-81 81 mg oral tablet,delayed release (DR/EC) take 1 tablet (81 mg ) by oral route once daily pravastatin 20 mg oral tablet take 1 tablet (20 mg) by oral route once daily Pacerone 200 mg oral tablet 11/19/2012 take 1/2 tablet (200 mg) by oral route once daily sertraline 100 mg oral tablet 01/27/2014 TAKE ONE TABLET BY MOUTH TWICE DAILY Norvasc oral Tablet 5 mg 03/01/2010 Oral 1 tablet (5 mg) by oral route daily 1 metoprolol tartrate 50 mg oral tablet 02/14/2015 TAKE ONE TABLET BY MOUTH TWICE DAILY levothyroxine 50 mcg oral tablet 03/22/2015 TAKE ONE TABLET BY MOUTH EVERY DAY sertraline 100 mg oral tablet 04/05/2015 TAKE ONE TABLET BY MOUTH TWICE DAILY omeprazole 20 mg oral capsule,delayed release(DR/EC) 05/02/2015 TAKE ONE CAPSULE BY MOUTH ONCE DAILY BEFORE A MEAL hydrochlorothiazide 25 mg oral tablet 10/03/2015 TAKE ONE TABLET BY MOUTH EVERY DAY amlodipine 10 mg oral tablet 12/07/2015 TAKE ONE TABLET BY MOUTH ONCE DAILY sertraline 50 mg oral tablet 03/20/2016 TAKE ONE TABLET BY MOUTH TWICE DAILY Name Start Date Expiration Date SIG Comments NORVASC 5MG TAB 5 each 09/05/2010 10/05/2010 1QD - TAKE ONE TABLET BY MOUTH EVERY DAY Xanax 0.25 mg oral tablet 09/22/2010 10/14/2010 [id number] - TAKE ONE TABLET BY MOUTH EVERY [...] 3 times per day for 10 days alprazolam 0.25 mg oral tablet 06/15/2015 09/11/2015 TAKE ONE TABLET BY MOUTH EVERY 12 HOURS NEEDED FOR ANXIETY Discontinued Name Start Date Discontinued Date SIG [...] 04/16/2013 take as directed for 6 days Problem List Description Status Onset Anxiety Active Heart disease Active Thyroid disorder Active Vital Signs Date Time BP-Sys(mm[Hg] BP-Velvet(mm[Hg]) HR(bpm) RR(rpm) Temp WT HT HC BMI BSA BMI Percentile O2 Sat(%) 04/04/2015 1:33:00 PM 126 mmHg 72 mmHg 67 bpm 18 rpm 97.7 F 161 lbs 66 in 25.99 kg/m2 1.84 m2 92 % 12/22/2014 10:43:00 AM 152 mmHg 70 mmHg 64 bpm 18 rpm 98.2 F 158 lbs 66 in 25.5016 kg/m 1.8268 m 09/23/2014 10:50:00 AM 128 mmHg 62 mmHg 64 bpm 16 rpm 97.8 F 165 lbs 66 in 26.63 kg/m2 1.87 m2 07/13/2014 1:57:00 PM 146 mmHg 82 mmHg 72 bpm 18 rpm 98.6 F 161 lbs 66 in 25.9858 kg/m 1.8441 m 12/14/2013 10:40:00 AM 136 mmHg 62 mmHg 64 bpm 18 rpm 98 F 161 lbs 66 in 25.99 kg/m2 1.84 m2 08/24/2013 1:25:00 PM 146 mmHg 90 mmHg 64 bpm 18 rpm 97.3 F 162.125 lbs 66 in 26.1674 kg/m 1.8505 m 97 % 04/16/2013 9:26:00 AM 128 mmHg 64 mmHg 72 bpm 18 rpm 98 F 162 lbs 66 in 26.15 kg/m2 1.85 m2 01/15/2013 11:20:00 AM 152 mmHg 70 mmHg 64 bpm 18 rpm 97.5 F 157 lbs 66 in 25.3402 kg/m 1.821 m 11/19/2012 10:30:00 AM 148 mmHg 68 mmHg 64 bpm 18 rpm 98.2 F 155 lbs 66 in 25.02 kg/m2 1.81 m2 05/16/2011 2:05:00 PM 138 mmHg 74 mmHg [...] 04/04/2015 12:00 AM Decadron, Per 1 Mg NDC# [address]-46 Reviewed 04/04/2015 12:00 AM Depo-Medrol, Per 80 Mg [facility]#[address]-01 Reviewed 04/04/2015 12:00 AM MAMMOGRAM ONE BREAST Reviewed 05/30/2011 12:00 AM ASSAY THYROID STIM HORMONE Reviewed 06/24/2012 12:00 AM Flu Injection 3 Years And Above [facility]# [address]-81 RHC Reviewed 08/24/2013 12:00 AM X-RAY EXAM OF HIP Reviewed 11/23/2009 12:00 AM ROUTINE VENIPUNCTURE Reviewed 11/23/2009 12:00 AM COMPLETE CBC W/AUTO DIFF WBC Reviewed 11/23/2009 12:00 AM COMPREHEN METABOLIC PANEL Reviewed 11/23/2009 12:00 AM CHEST X-RAY 2VW FRONTAL&LATL Reviewed 11/23/2009 12:00 AM THER/PROPH/DIAG INJ SC/IM Reviewed 11/23/2009 12:00 AM Bicillin CR (1.2) [facility]# [id number]--[facility] Reviewed 05/17/2010 12:00 AM FLU VACCINE 3 YRS & > IM Reviewed 04/13/2014 12:00 AM COMPUTER DX MAMMOGRAM ADD-ON Reviewed 09/23/2014 12:00 AM Decadron 8 mg [facility]# [address]-61 Reviewed 09/23/2014 12:00 AM Depo-Medrol 80 mg [facility]#[address]-76 Reviewed 01/03/2011 12:00 AM Decadron Inj.1mg-([place]) [facility] #[id number] Reviewed 01/03/2011 12:00 AM Depo-Medrol 80 Mg Im/[facility] [place] [facility] [id number] Reviewed 12/22/2014 12:00 AM COMPLETE CBC W/AUTO DIFF WBC Reviewed 12/22/2014 12:00 AM COMPREHEN METABOLIC PANEL Reviewed 12/22/2014 12:00 AM ASSAY THYROID STIM HORMONE Reviewed 12/22/2014 12:00 AM CHEST X-RAY 2VW FRONTAL&LATL Reviewed 12/22/2014 12:00 AM PNEUMOCOCCAL VACC 13 THUAN IM Reviewed 12/22/2014 12:00 AM TDAP VACCINE 7 YRS/> IM Reviewed Results Summary Data and Description Results 11/23/2009 1:10 PM WBC [...] MANUAL DIFF NOT IND TSH 3.320 uIU/mL 06/06/2015 10:10 AM GLUCOSE 98.0 mg/dLSODIUM 145.0 mmol/LPOTASSIUM 4.40 mmol/ LCHLORIDE 112.0 mmol/LCO2 25.0 mmol/LBUN 17.0 mg/dLCREATININE 0.80 mg/dLCALCIUM 9.10 mg/dLAGE 80 GFR NonAA 69 GFR AA 84 eGFR >60 mL/min/1.73meGFR AA* >60 WBC 9.1 RBC 4.25 HGB 13.70 g/dLHCT 40.30 %MCV 95.0 fLMCH 32.20 pgMCHC 34.0 g/dLRDW SD 55 RDW CV 16.10 %MPV 11.20 fLPLT 191 NRBC# 0.00 NRBC% 0.0 %NEUT 64.80 %%LYMP 25.10 %%MONO 7.60 %%EOS 2.10 %%BASO 0.40 %#NEUT 5.89 #LYMP 2.28 #MONO 0.69 #EOS 0.19 #BASO 0.04 MANUAL DIFF NOT IND 04/05/2016 12:39 PM WBC 11.7 RBC 4.42 HGB 13.50 g/dLHCT 39.90 %MCV 90.0 fLMCH 30.50 pgMCHC 33.80 g/dLRDW SD 44 RDW CV 13.20 %MPV 10.90 fLPLT 187 NRBC# 0.00 NRBC% 0.0 %NEUT 60.90 %%LYMP 30.50 %%MONO 6.30 %%EOS 1.20 %%BASO 0.70 %#NEUT 7.12 #LYMP 3.57 #MONO 0.74 #EOS 0.14 #BASO 0.08 MANUAL DIFF NOT IND GLUCOSE 105.0 mg/dLSODIUM 142.0 mmol/LPOTASSIUM 3.60 mmol/LCHLORIDE 107.0 mmol/LCO2 25.0 mmol/LBUN 20.0 mg/dLCREATININE 0.90 mg/dLSGOT/AST 26.0 IU/LSGPT/ALT 23.0 IU /LALK PHOS 101.0 IU/LTOTAL PROTEIN 7.90 g/dLALBUMIN 4.40 g/dLTOTAL BILI 0.50 mg/ dLCALCIUM 9.50 mg/dLAGE 80 GFR NonAA 60 GFR AA 73 eGFR 60 eGFR AA* >60 TSH 7.0 uIU/mL History Of Immunizations Name Date Admin Mfg Name Mfg Code Trade Name Lot# Route Inj Vis Given Vis Pub CVX Influenza 06/24/2012 sanofi pasteur PMC Fluzone [id number] Intramuscular Left Arm 06/24/2012 12/03/2011 141 Tdap 12/22/2014 sanofi pasteur PMC ADACEL [id number] Intramuscular Left Deltoid 12/22/2014 10/09/2012 115 X 12/22/2014 Eqlju-Wtdkbh-Oulklvf-Praxis WAL Prevnar [id number] Intramuscular Right Deltoid 12/22/2014 07/30/2012 100 Pneumococcal 12/22/2014 Fjytw-Uspyff-Vzzdusk-Praxis WAL Prevnar 13 [id number] Intramuscular Right Deltoid 12/22/2014 07/30/2012 133 X 12/22/2014 Fuivx-Xsklff-Svkqxrd-Praxis WAL Prevnar 13 [id number] Intramuscular Right Deltoid 12/22/2014 07/30/2012 133 Tdap 12/22/2014 sanofi pasteur PMC ADACEL [id number] Intramuscular Left Deltoid 12/22/2014 07/30/2012 115 Influenza 04/01/2015 Not Entered NE Not Entered Not Entered Not Entered 06/03/2015 06/03/2015 141 Influenza 01/19/2016 Not Entered NE Fluzone Intramuscular Right Arm 06/03/2015 141 History of Past Illness Name Date of [...] 2010 9:27AM Flu May 17 2010 9:27AM Contact Dermatitis Jan 03 2011 2:45PM Hypertension [...] High Risk Patient Apr 05 2016 2:30PM Payers Insurance Name Company Name Plan Name Plan Number Policy Number Policy Group Number Start Date Medicare Part A Medicare Part A [id number] N/A [facility] [id number] June Medicare Part A Medicare Part A [id number] N/A Medicare Part A Medicare - Lab/Xray [id number] N/A Medicare Part B Medicare Of [place] [id number] Sunday, May 03, 1998 History of Encounters Visit Date Visit Type Provider 04/04/2015 Office visit Ludwin Leong MD 12/27/2014 Office visit Candido August MD 12/22/2014 Office visit 12/22/2014 Office visit Ludwin Leong MD 12/17/2014 Hospital Candido August MD 09/23/2014 Office visit [...]
--- OUTSIDE RECORDS SUMMARY | 2018-07-09 08:06 | XMS REPORT ---
Author Author Ludwin Leong [facility] Address [address] [place], [place] [id number] Care Team Providers Care Assistant Oceanographer Name Role Phone Ludwin Leong PCP Unavailable Allergies and Adverse Reactions Name Reaction Notes Tape Plan of Treatment Not available. Medications Active Name Start Date Estimated Completion Date SIG Comments Aspir-81 Oral Tablet, Delayed Release (E.C.) mg take 1 tablet (81 mg) by oral route once daily pravastatin Oral tablet 20 mg take 1 tablet (20 mg) by oral route once daily Pacerone Oral tablet 200 mg 11/19/2012 take 1/2 tablet (200 mg) by oral route once daily Prilosec oral capsule,delayed release(DR/EC) 20 mg 12/14/2013 03/09/2015 take 1 capsule (20 mg) by oral route once daily before a meal for 90 days sertraline oral tablet 100 mg 01/27/2014 TAKE ONE TABLET BY MOUTH TWICE DAILY Norvasc oral Tablet 5 mg 03/01/2010 Oral 1 tablet (5 mg) by oral route daily 1 metoprolol succinate oral tablet extended release 24 hr 50 mg 12/22/201404/21 take 1 tablet (50 mg) by oral route once daily for 30 days sertraline oral tablet 50 mg 12/22/2014 11/17/2015 take 1 tablet by oral route 2 times a day for 30 days Name Start Date Expiration Date SIG Comments NORVASC 5MG TAB 5 each 09/05/2010 10/05/2010 1QD - TAKE ONE TABLET BY MOUTH EVERY DAY Xanax Oral Tablet 0.25 mg 09/22/2010 10/14/2010 [id number] - TAKE ONE TABLET BY MOUTH EVERY 12 HOURS NEEDED FOR ANXIETY Celexa Oral Tablet 20 mg 12/15/2010 01/14/2011 take 1 tablet (20 mg) by oral route once daily in the evening for 30 days Zithromax Z-Jarad Oral Tablet 250 mg 05/16/2011 05/21/2011 take 2 tablets ( 500 mg) by oral route once daily for 1 day then 1 tablet (250 mg) by oral route once daily for 4 days sertraline Oral tablet 100 mg 11/19/2012 11/14/2013 take 1 tablet bid levothyroxine oral tablet 50 mcg 02/11/2013 03/13/2013 TAKE ONE TABLET BY MOUTH EVERY DAY HYDROCHLOROTHIAZIDE 25MG TAB 25MG each 03/31/2013 04/30/2013 TAKE ONE TABLET BY MOUTH EVERY DAY alprazolam Oral tablet 0.25 mg 05/18/2013 08/14/2013 TAKE ONE TABLET BY MOUTH EVERY 12 HOURS NEEDED FOR ANXIETY meloxicam oral tablet 15 mg 12/14/2013 12/09/2014 take 1 tablet (15 mg) by oral route once daily prn Zithromax Z-Jarad oral tablet 250 mg 06/01/2014 06/06/2014 take 2 tablets (500 mg) by oral route once daily for 1 day then 1 tablet (250 mg) by oral route once daily for 4 days Valtrex oral tablet 1 gram 07/13/2014 08/02/2014 take 1 tablet (1,000 mg) by oral route 3 times per day for 10 days prednisone oral tablet 20 mg 07/13/2014 07/23/2014 take 2 tablets (40 mg) by oral route once daily for 10 days Lotrisone topical cream 1-0.05 % 09/27/2014 11/22/2014 apply to the affected and surrounding areas of skin by topical route 2 times per day in the morning and evening for 2 weeks Discontinued Name Start Date Discontinued Date SIG Comments Clonidine Oral Tablet 0.1 mg 01/30/2010 Diovan Oral Tablet 320 mg 11/19/2012 take 1 tablet (320 mg) by oral route once daily Digoxin Oral Tablet 250 mcg 11/19/2012 take 1 tablet (250 mcg) by oral route once daily Hydrochlorothiazide Oral 11/19/2012 Warfarin Oral Tablet 5 mg 08/24/2013 take 1 tablet (5 mg) by oral route once daily Levaquin Oral Tablet 500 mg 01/30/2010 take 1 tablet (500 mg) by oral route once daily for 10 days DIOVAN 320MG TAB 320 each 01/03/2010 02/02/2010 1QD - TAKE ONE TABLET BY MOUTH EVERY DAY Tylenol Oral Tablet 325 mg 01/30/2010 01/15/2013 take 1 - 2 tablets (325 -650 mg) by oral route every 4-6 hours as needed lisinopril Oral Tablet 20 mg 12/15/2010 11/19/2012 take 1 tablet (20 mg) by oral route once daily Medrol (Jarad) Oral tablets,dose pack 4 mg 01/15/2013 04/16/2013 take as directed for 6 days Problem List Description Status Onset Anxiety Active Heart disease Active Thyroid disorder Active Vital Signs Date Time BP-Sys(mm[Hg] BP-Velvet(mm[Hg]) HR(bpm) RR(rpm) Temp WT HT HC BMI BSA BMI Percentile O2 Sat(%) 12/22/2014 10:43:00 AM 152 mmHg 70 mmHg [...] rpm 98.1 F 157 lbs 156.5 in 4.51 kg/m2 2.80 m2 05/17/2010 9:28:00 AM 136 mmHg 72 mmHg [...] of Procedures Date Ordered Description Order Status 05/30/2011 12:00 AM ASSAY THYROID STIM HORMONE Reviewed 06/24/2012 12:00 AM Flu Injection 3 Years And Above [facility]# [address]-98 RHC Reviewed 04/16/2013 12:00 AM Cardiology Consult Ordered 08/24/2013 12:00 AM X-RAY EXAM OF HIP Reviewed 11/23/2009 12:00 AM ROUTINE VENIPUNCTURE Reviewed 11/23/2009 12:00 AM COMPLETE CBC W/AUTO DIFF WBC Reviewed 11/23/2009 12:00 AM COMPREHEN METABOLIC PANEL Reviewed 11/23/2009 12:00 AM CHEST X-RAY 2VW FRONTAL&LATL Reviewed 11/23/2009 12:00 AM THER/PROPH/DIAG INJ SC/IM Reviewed 11/23/2009 12:00 AM Bicillin CR (1.2) [facility]# [id number]--[facility] Reviewed 05/17/2010 12:00 AM FLU VACCINE 3 YRS & > IM Reviewed 04/13/2014 12:00 AM COMPUTER DX MAMMOGRAM ADD-ON Reviewed 09/23/2014 12:00 AM Decadron 8 mg [facility]# [address]-98 Reviewed 09/23/2014 12:00 AM Depo-Medrol 80 mg [facility]#[address]-77 Reviewed 12/27/2014 12:00 AM PNEUMOCOCCAL VACC 13 THUAN IM Reviewed 12/27/2014 12:00 AM TDAP VACCINE 7 YRS/> IM Reviewed 01/03/2011 12:00 AM Decadron Inj.1mg-([place]) [facility] #[id number] Reviewed 01/03/2011 12:00 AM Depo-Medrol 80 Mg Im/[place] [facility] [id number] Reviewed 12/22/2014 12:00 AM COMPLETE CBC W/AUTO DIFF WBC Reviewed 12/22/2014 12:00 AM COMPREHEN METABOLIC PANEL Reviewed 12/22/2014 12:00 AM ASSAY THYROID STIM HORMONE Reviewed 12/22/2014 12:00 AM CHEST X-RAY 2VW FRONTAL&LATL Reviewed 12/22/2014 12:00 AM PNEUMOCOCCAL VACC 13 THUAN IM Ordered 12/22/2014 12:00 AM TDAP VACCINE 7 YRS/> IM Ordered Results Summary Data and Description Results 11/23/2009 1:10 PM WBC 18.8 RBC 4.01 HGB 13.30 g/dLHCT 38.20 %MCV 95.0 fLMCH 33.20 pgMCHC 34.80 g/dLRDW CV 13.0 %MPV 10.40 fLPLT 200 %NEUT 83.70 %%LYMP 9.60 %%MONO 6.10 %%EOS 0.40 %%BASO 0.20 %#NEUT 15.69 #LYMP 1.81 #MONO 1.14 #EOS 0.08 #BASO 0.04 GLUCOSE 98.0 mg/dLSODIUM 140.0 mmol/LPOTASSIUM 3.40 mmol/LCHLORIDE 105.0 mmol/LCO2 25.0 mmol/LBUN 15.0 mg/dLCREATININE 0.80 mg/dLSGOT/AST 22.0 IU/ LSGPT/ALT 22.0 IU/LALK PHOS 97.0 IU/LTOTAL PROTEIN 7.90 g/dLALBUMIN 4.0 g/ dLTOTAL BILI 0.50 mg/dLCALCIUM 9.30 mg/dLeGFR >60 mL/min/1.73 m2 12/22/2014 11:55 AM GLUCOSE 108.0 mg/dLSODIUM 142.0 mmol/LPOTASSIUM 4.0 mmol/ LCHLORIDE 108.0 mmol/LCO2 24.0 mmol/LBUN 16.0 mg/dLCREATININE 0.80 mg/dLSGOT/ AST 17.0 IU/LSGPT/ALT 17.0 IU/LALK PHOS 75.0 IU/LTOTAL PROTEIN 6.70 g/dLALBUMIN 3.90 g/dLTOTAL BILI 0.80 mg/dLCALCIUM 9.20 mg/dLeGFR >60 mL/min/1.73 m2WBC 10.0 RBC 3.95 HGB 12.50 g/dLHCT 36.60 %MCV 93.0 fLMCH 31.60 pgMCHC 34.20 g/dLRDW CV 14.0 %MPV 10.20 fLPLT 178 %NEUT 65.40 %%LYMP 24.0 %%MONO 7.80 %%EOS 2.30 %%BASO 0.50 %#NEUT 6.55 #LYMP 2.40 #MONO 0.78 #EOS 0.23 #BASO 0.05 TSH 3.320 uIU/mL History Of Immunizations Name Date Admin Mfg Name Mfg Code Trade Name Lot# Route Inj Vis Given Vis Pub CVX Influenza 06/24/2012 sanofi pasteur PMC Fluzone [id number] Intramuscular Left Arm 06/24/2012 12/03/2011 141 Tdap 12/22/2014 sanofi pasteur PMC ADACEL [id number] Intramuscular Left Deltoid 12/22/2014 10/09/2012 115 Pneumococcal 12/22/2014 Qaaqd-Fkxyws-RblbkvkPrasylvia QUINN Prevnar [id number] Intramuscular Right Deltoid 12/22/2014 07/30/2012 100 History of Past Illness Name Date of [...] Head Open Wound Dec 27 2014 2:02PM Payers Insurance Name Company Name Plan Name Plan Number Policy Number Policy Group Number Start Date Medicare Part A Medicare Part A [id number] N/A [facility] [id number] June Medicare Part A Medicare Part A [id number] N/A Medicare Part B Medicare Of [place] [id number] Thursday, 1997 History of Encounters Visit Date Visit Type Provider 12/27/2014 Office visit Candido August MD 12/22/2014 Office visit Ludwin Leong MD 12/17/2014 [...]
--- OUTSIDE RECORDS SUMMARY | 2018-07-09 08:07 | XMS REPORT ---
Author Author Ludwin Leong [facility] Address [address] [place], [place] [id number] Care Team Providers Care Boom Master Name Role Phone Ludwin Leong PCP Unavailable [...] Xanax Oral Tablet 0.25 mg 09/22/2010 10/14/2010 [id number] - TAKE ONE TABLET BY MOUTH EVERY [...] AM Flu Injection 3 Years And Above [facility]# [address]-77 RHC Reviewed 04/16/2013 12:00 AM Cardiology Consult Ordered 08/24/2013 12:00 AM X-RAY EXAM OF HIP Reviewed 11/23/2009 12:00 AM ROUTINE VENIPUNCTURE Reviewed 11/23/2009 12:00 AM COMPLETE CBC W/AUTO DIFF WBC Reviewed 11/23/2009 12:00 AM COMPREHEN METABOLIC PANEL Reviewed 11/23/2009 12:00 AM CHEST X-RAY 2VW FRONTAL&LATL Reviewed 11/23/2009 12:00 AM THER/PROPH/DIAG INJ SC/IM Reviewed 11/23/2009 12:00 AM Bicillin CR (1.2) [facility]# [id number]--[facility] Reviewed 05/17/2010 12:00 AM FLU VACCINE 3 YRS & > IM Reviewed 04/13/2014 12:00 AM COMPUTER DX MAMMOGRAM ADD-ON Reviewed 09/23/2014 12:00 AM Decadron 8 mg [facility]# [address]-82 Reviewed 09/23/2014 12:00 AM Depo-Medrol 80 mg [facility]#[address]-64 Reviewed 12/27/2014 12:00 AM PNEUMOCOCCAL VACC 13 THUAN IM Reviewed 12/27/2014 12:00 AM TDAP VACCINE 7 YRS/> IM Reviewed 01/03/2011 12:00 AM Decadron Inj.1mg-([place]) [facility] #[id number] Reviewed 01/03/2011 12:00 AM Depo-Medrol 80 Mg Im/[place] [facility] [id number] Reviewed 12/22/2014 12:00 AM COMPLETE CBC W/AUTO [...] CVX Influenza 06/24/2012 sanofi pasteur PMC Fluzone [id number] Intramuscular Left Arm 06/24/2012 12/03/2011 141 Tdap 12/22/2014 sanofi pasteur PMC ADACEL [id number] Intramuscular Left Deltoid 12/22/2014 10/09/2012 115 Pneumococcal 12/22/2014 Xzabe-Tsniil-NztmnxtPrasylvia QUINN Prevnar [id number] Intramuscular Right Deltoid 12/22/2014 07/30/2012 100 History [...] Date Medicare Part A Medicare Part A [id number] N/A [facility] [id number] June Medicare Part A Medicare Part A [id number] N/A Medicare Part B Medicare [place] [id number] Thursday, 1997 History of Encounters Visit Date [...]
--- OUTSIDE RECORDS SUMMARY | 2018-07-09 08:07 | XMS REPORT ---
Author Author Ludwin Leong [facility] Address [address] [place], [place] [id number] Care Team Providers Care Assistant Press Operator Offset Name Role Phone Ludwin Leong PCP Unavailable [...] Xanax Oral Tablet 0.25 mg 09/22/2010 10/14/2010 [id number] - TAKE ONE TABLET BY MOUTH EVERY [...] 12:00 AM ASSAY THYROID STIM HORMONE Reviewed 08/24/2013 12:00 AM X-RAY EXAM OF HIP Reviewed 11/23/2009 12:00 AM ROUTINE VENIPUNCTURE Reviewed 11/23/2009 12:00 AM COMPLETE CBC W/AUTO DIFF WBC Reviewed 11/23/2009 12:00 AM COMPREHEN METABOLIC PANEL Reviewed 11/23/2009 12:00 AM CHEST X-RAY 2VW FRONTAL&LATL Reviewed 11/23/2009 12:00 AM THER/PROPH/DIAG INJ SC/IM Reviewed 05/17/2010 12:00 AM FLU VACCINE 3 YRS & > IM Reviewed 04/13/2014 12:00 AM COMPUTER DX MAMMOGRAM ADD-ON Reviewed 12/22/2014 12:00 AM COMPLETE CBC W/AUTO DIFF WBC Reviewed 12/22/2014 12:00 AM COMPREHEN METABOLIC PANEL Reviewed 12/22/2014 12:00 AM ASSAY THYROID STIM HORMONE Reviewed 12/22/2014 12:00 AM CHEST X-RAY 2VW FRONTAL&LATL Reviewed Results Summary Data and Description Results [...] Vis Given Vis Pub CVX Influenza 06/24/2012 [facility] PMC Fluzone [id number] Intramuscular Left Arm 06/24/2012 12/03/2011 141 History of Past Illness Name Date [...] Date Medicare Part A Medicare Part A [id number] N/A [facility] [place] [id number] June Medicare Part A Medicare Part A [id number] N/A Medicare Part B Medicare Of [place] [id number] Thursday, 1997 History of Encounters Visit Date Visit Type Provider 12/27/2014 Office visit Candido August MD 12/22/2014 Office visit Ludwin Leong MD 09/23/2014 Office visit Ludwin Leong MD [...]
--- OUTSIDE RECORDS SUMMARY | 2018-07-09 08:08 | XMS REPORT ---
Author Author Ludwin Leong [facility] Address [address] [place], [place] [address] Care Team Providers Care Therapist'S Assistant Name Role Phone Ludwin Leong PCP Unavailable Allergies and Adverse Reactions Name Reaction Notes Tape Plan of Treatment Planned Activity Comments Planned Date Planned Time Plan/Goal MAMMOGRAM BOTH BREASTS 04/05/2016 12:00 AM Medications Active Name Start [...] Xanax 0.25 mg oral tablet 09/22/2010 10/14/2010 [id number] - TAKE ONE TABLET BY MOUTH EVERY [...] 04/04/2015 12:00 AM Decadron, Per 1 Mg [facility]# [address]-04 Reviewed 04/04/2015 12:00 AM Depo-Medrol, Per 80 Mg [facility]#[address]-14 Reviewed 04/04/2015 12:00 AM MAMMOGRAM ONE BREAST Reviewed 05/30/2011 12:00 AM ASSAY THYROID STIM HORMONE Reviewed 06/24/2012 12:00 AM Flu Injection 3 Years And Above [facility]# [address]-12 RHC Reviewed 08/24/2013 12:00 AM X-RAY EXAM OF HIP Reviewed 11/23/2009 12:00 AM ROUTINE VENIPUNCTURE Reviewed 11/23/2009 12:00 AM COMPLETE CBC W/AUTO DIFF WBC Reviewed 11/23/2009 12:00 AM COMPREHEN METABOLIC PANEL Reviewed 11/23/2009 12:00 AM CHEST X-RAY 2VW FRONTAL&LATL Reviewed 11/23/2009 12:00 AM THER/PROPH/DIAG INJ SC/IM Reviewed 11/23/2009 12:00 AM Bicillin CR (1.2) [facility]# [id number]--[place] [facility] Reviewed 05/17/2010 12:00 AM FLU VACCINE 3 YRS & > IM Reviewed 04/13/2014 12:00 AM COMPUTER DX MAMMOGRAM ADD-ON Reviewed 09/23/2014 12:00 AM Decadron 8 mg [facility]# [address]-86 Reviewed 09/23/2014 12:00 AM Depo-Medrol 80 mg [facility]#[address]-88 Reviewed 01/03/2011 12:00 AM Decadron Inj.1mg-([place]) [facility] #[id number] Reviewed 01/03/2011 12:00 AM Depo-Medrol 80 Mg Im/[facility] [place] [facility] [id number] Reviewed 12/22/2014 12:00 AM COMPLETE CBC W/AUTO [...] #EOS 0.23 #BASO 0.05 TSH 3.320 uIU/mL 06/06/2015 10:10 AM GLUCOSE 98.0 mg/dLSODIUM 145.0 mmol/LPOTASSIUM 4.40 mmol/ LCHLORIDE 112.0 mmol/LCO2 25.0 mmol/LBUN 17.0 mg/dLCREATININE 0.80 mg/dLCALCIUM 9.10 mg/dLeGFR >60 mL/min/1.73mWBC 9.1 RBC 4.25 HGB 13.70 g/dLHCT 40.30 %MCV 95.0 fLMCH 32.20 pgMCHC 34.0 g/dLRDW CV 16.10 %MPV 11.20 fLPLT 191 %NEUT 64.80 % %LYMP 25.10 %%MONO 7.60 %%EOS 2.10 %%BASO 0.40 %#NEUT 5.89 #LYMP 2.28 #MONO 0.69 #EOS 0.19 #BASO 0.04 04/05/2016 12:39 PM WBC 11.7 RBC 4.42 HGB 13.50 g/dLHCT 39.90 %MCV 90.0 fLMCH 30.50 pgMCHC 33.80 g/dLRDW CV 13.20 %MPV 10.90 fLPLT 187 %NEUT 60.90 %%LYMP 30.50 %%MONO 6.30 %%EOS 1.20 %%BASO 0.70 %#NEUT 7.12 #LYMP 3.57 #MONO 0.74 #EOS 0.14 #BASO 0.08 GLUCOSE 105.0 mg/dLSODIUM 142.0 mmol/LPOTASSIUM 3.60 mmol/ LCHLORIDE 107.0 mmol/LCO2 25.0 mmol/LBUN 20.0 mg/dLCREATININE 0.90 mg/dLSGOT/ AST 26.0 IU/LSGPT/ALT 23.0 IU/LALK PHOS 101.0 IU/LTOTAL PROTEIN 7.90 g/ dLALBUMIN 4.40 g/dLTOTAL BILI 0.50 mg/dLCALCIUM 9.50 mg/dLeGFR 60 TSH 7.0 uIU/mL History Of Immunizations Name Date Admin Mfg Name Mfg Code Trade Name Lot# Route Inj Vis Given Vis Pub CVX Influenza 06/24/2012 sanofi pasteur PMC Fluzone [id number] Intramuscular Left Arm 06/24/2012 12/03/2011 141 Tdap 12/22/2014 [facility] ADACEL [id number] Intramuscular Left Deltoid 12/22/2014 10/09/2012 115 X 12/22/2014 Patps-Jcgakm-Ixqzevb-Praxis WAL Prevnar [id number] Intramuscular Right Deltoid 12/22/2014 07/30/2012 100 Pneumococcal 12/22/2014 Nucmg-Aamzjd-Ldlpkmv-Praxis WAL Prevnar 13 [id number] Intramuscular Right Deltoid 12/22/2014 07/30/2012 133 X 12/22/2014 Dnedb-Sodrtt-Znsqsoi-Praxis WAL Prevnar 13 [id number] Intramuscular Right Deltoid 12/22/2014 07/30/2012 133 Tdap 12/22/2014 [facility] ADACEL [id number] Intramuscular Left Deltoid 12/22/2014 07/30/2012 115 Influenza [...] High Risk Patient Apr 04 2015 4:57PM Encounter for screening mammogram for breast cancer Apr 05 2016 2:30PM Payers Insurance Name Company Name Plan Name Plan Number Policy Number Policy Group Number Start Date Medicare Part A Medicare Part A [id number] N/A [id number] June Medicare Part A Medicare Part A [id number] N/A Medicare Part A Medicare - Lab/Xray [id number] N/A Medicare Part B Medicare Of [place] [id number] Sunday, May 03, 1998 History of Encounters Visit Date Visit Type Provider 04/04/2015 Office visit Ludwin Leong MD 12/27/2014 Office visit Candido August MD 12/22/2014 Office visit 12/22/2014 Office visit Ludwin Leong MD 12/17/2014 [facility] Candido August MD 09/23/2014 Office visit Ludwin [...]
--- OUTSIDE RECORDS SUMMARY | 2018-07-09 08:08 | XMS REPORT ---
Author Author Tyler Conley [facility] Address [address] [place], [place] [address] Care Team Providers Care Director Targeted Marketing Name Role Phone Tyler Conley PCP Unavailable Ludwin Leong PreferredProvider Unavailable Allergies and Adverse Reactions Name Reaction Notes Tape Poison andrzej Plan of Treatment Planned Activity Comments Planned Date Planned Time Plan/Goal Diagnostic Mammogram 03/18/2017 12:00 AM Medications Active Name Start Date [...] TAKE ONE TABLET BY MOUTH EVERY DAY omeprazole 20 mg oral capsule,delayed release(DR/EC) 05/02/2015 TAKE ONE CAPSULE BY MOUTH ONCE DAILY BEFORE A MEAL amlodipine 10 mg oral tablet 12/07/2015 TAKE ONE TABLET BY MOUTH ONCE DAILY sertraline 50 mg oral tablet 03/20/2016 TAKE ONE TABLET BY MOUTH TWICE DAILY levothyroxine 50 mcg oral tablet 05/07/2016 TAKE ONE TABLET BY MOUTH ONCE DAILY omeprazole 20 mg oral capsule,delayed release(DR/EC) 07/23/2016 TAKE ONE CAPSULE BY MOUTH ONCE DAILY BEFORE A MEAL hydrochlorothiazide 25 mg oral tablet 02/14/2017 02/09/2018 TAKE ONE TABLET BY MOUTH ONCE DAILY alprazolam 0.25 mg oral tablet 03/08/2017 06/04/2017 TAKE ONE TABLET BY MOUTH EVERY 12 HOURS NEEDED FOR ANXIETY Name Start Date Expiration Date SIG Comments NORVASC 5MG TAB 5 each 09/05/2010 10/05/2010 1QD - TAKE ONE TABLET BY MOUTH EVERY DAY Xanax 0.25 mg oral tablet 09/22/2010 10/14/2010 [id number] - TAKE ONE TABLET BY MOUTH EVERY [...] 3 times per day for 10 days Discontinued Name Start Date Discontinued Date SIG [...] HC BMI BSA BMI Percentile O2 Sat(%) 12/03/2016 2:17:00 PM 132 mmHg 62 mmHg [...] 04/04/2015 12:00 AM Decadron, Per 1 Mg [facility]# [address]-53 Reviewed 04/04/2015 12:00 AM Depo-Medrol, Per 80 Mg [facility]#[address]-23 Reviewed 04/04/2015 12:00 AM MAMMOGRAM ONE BREAST Reviewed 05/30/2011 12:00 AM ASSAY THYROID STIM HORMONE Reviewed 04/05/2016 12:00 AM MAMMOGRAM SCREENING Reviewed 12/03/2016 12:00 AM X-RAY EXAM OF PELVIS Reviewed 12/03/2016 12:00 AM X-RAY EXAM OF HIP Reviewed 06/24/2012 12:00 AM Flu Injection 3 Years And Above [facility]# [address]-81 RHC Reviewed 08/24/2013 12:00 AM X-RAY EXAM OF HIP Reviewed 11/23/2009 12:00 AM ROUTINE VENIPUNCTURE Reviewed 11/23/2009 12:00 AM COMPLETE CBC W/AUTO DIFF WBC Reviewed 11/23/2009 12:00 AM COMPREHEN METABOLIC PANEL Reviewed 11/23/2009 12:00 AM CHEST X-RAY 2VW FRONTAL&LATL Reviewed 11/23/2009 12:00 AM THER/PROPH/DIAG INJ SC/IM Reviewed 11/23/2009 12:00 AM Bicillin CR (1.2) [facility]# [id number]--[facility] Clinic Reviewed 05/17/2010 12:00 AM FLU VACCINE 3 YRS & > IM Reviewed 04/13/2014 12:00 AM COMPUTER DX MAMMOGRAM ADD-ON Reviewed 09/23/2014 12:00 AM Decadron 8 mg [facility]# [address]-62 Reviewed 09/23/2014 12:00 AM Depo-Medrol 80 mg [facility]#[address]-88 Reviewed 01/03/2011 12:00 AM Decadron Inj.1mg-([place]) [facility] #[id number] Reviewed 01/03/2011 12:00 AM Depo-Medrol 80 Mg Im/[facility] [place] [facility] [id number] Reviewed 12/22/2014 12:00 AM COMPLETE CBC W/AUTO [...] CVX Influenza 06/24/2012 sanofi pasteur PMC Fluzone [id number] Intramuscular Left Arm 06/24/2012 12/03/2011 141 Tdap 12/22/2014 sanofi pasteur PMC ADACEL [id number] Intramuscular Left Deltoid 12/22/2014 10/09/2012 115 X 12/22/2014 Akzie-Sbpdqr-Fjsopmb-Praxis WAL Prevnar [id number] Intramuscular Right Deltoid 12/22/2014 07/30/2012 100 Pneumococcal 12/22/2014 Bgeww-Plfxvy-Fzkptje-Praxis WAL Prevnar 13 [id number] Intramuscular Right Deltoid 12/22/2014 07/30/2012 133 X 12/22/2014 Yqozu-Eicfrn-Sjnnvpv-Praxis WAL Prevnar 13 [id number] Intramuscular Right Deltoid 12/22/2014 07/30/2012 133 Tdap 12/22/2014 sanofi pasteur PMC ADACEL [id number] Intramuscular Left Deltoid 12/22/2014 07/30/2012 115 Influenza 04/01/2015 Not Entered NE Not Entered Not Entered Not Entered 06/03/2017 06/03/2017 141 Influenza 01/19/2016 Not Entered NE Fluzone Intramuscular Right Arm 06/03/2017 141 Influenza 01/30/2017 [facility] Fluzone High-Dose UI [id number] [id number] Intramuscular Right Arm 03/14/2017 [...] High Risk Patient Mar 18 2017 2:02PM Payers Insurance Name Company Name Plan Name Plan Number Policy Number Policy Group Number Start Date Medicare Part A Medicare Part A [id number] N/A BCBS [facility] [place] [id number] June Medicare Part A Medicare Part A [id number] N/A Medicare Part A Medicare - Lab/Xray [id number] N/A Medicare Part B Medicare [facility] [id number] Sunday, May 03, 1998 History of Encounters Visit Date Visit Type Provider 12/03/2016 Office visit Tyler Conley NP 04/04/2015 Office visit Ludwin Leong MD 12/27/2014 Office visit Candido August MD 12/22/2014 Office visit 12/22/2014 Office visit Ludwin Leong MD 12/17/2014 [facility] Candido August MD 09/23/2014 Office visit [...]
--- OUTSIDE RECORDS SUMMARY | 2018-07-09 08:09 | XMS REPORT ---
Author Author Tyler Conley [facility] Address [address] [place], [place] [address] Care Team Providers Care Microbiology Lab Manager Name Role Phone Tyler Conley PCP Unavailable Ludwin Leong PreferredProvider Unavailable Allergies and Adverse Reactions Name Reaction Notes Tape Poison andrzej Plan of Treatment Not available. Medications Active [...] BY MOUTH ONCE DAILY BEFORE A MEAL Name Start Date Expiration Date SIG Comments NORVASC 5MG TAB 5 each 09/05/2010 10/05/2010 1QD - TAKE ONE TABLET BY MOUTH EVERY DAY Xanax 0.25 mg oral tablet 09/22/2010 10/14/2010 [id number] - TAKE ONE TABLET BY MOUTH EVERY [...] 04/04/2015 12:00 AM Decadron, Per 1 Mg [facility]# [address]-35 Reviewed 04/04/2015 12:00 AM Depo-Medrol, Per 80 Mg [facility]#[address]-95 Reviewed 04/04/2015 12:00 AM MAMMOGRAM ONE BREAST Reviewed 05/30/2011 12:00 AM ASSAY THYROID STIM HORMONE Reviewed 04/05/2016 12:00 AM MAMMOGRAM SCREENING Reviewed 12/03/2016 12:00 AM X-RAY EXAM OF PELVIS Reviewed 12/03/2016 12:00 AM X-RAY EXAM OF HIP Reviewed 06/24/2012 12:00 AM Flu Injection 3 Years And Above [facility]# [address]-90 RHC Reviewed 08/24/2013 12:00 AM X-RAY EXAM OF HIP Reviewed 11/23/2009 12:00 AM ROUTINE VENIPUNCTURE Reviewed 11/23/2009 12:00 AM COMPLETE CBC W/AUTO DIFF WBC Reviewed 11/23/2009 12:00 AM COMPREHEN METABOLIC PANEL Reviewed 11/23/2009 12:00 AM CHEST X-RAY 2VW FRONTAL&LATL Reviewed 11/23/2009 12:00 AM THER/PROPH/DIAG INJ SC/IM Reviewed 11/23/2009 12:00 AM Bicillin CR (1.2) [facility]# [id number]--[facility] Clinic Reviewed 05/17/2010 12:00 AM FLU VACCINE 3 YRS & > IM Reviewed 04/13/2014 12:00 AM COMPUTER DX MAMMOGRAM ADD-ON Reviewed 09/23/2014 12:00 AM Decadron 8 mg [facility]# [address]-17 Reviewed 09/23/2014 12:00 AM Depo-Medrol 80 mg [facility]#[address]-26 Reviewed 01/03/2011 12:00 AM Decadron Inj.1mg-([place]) [facility] #[id number] Reviewed 01/03/2011 12:00 AM Depo-Medrol 80 Mg Im/[facility] [id number] Reviewed 12/22/2014 12:00 AM COMPLETE CBC W/AUTO [...] 60 eGFR AA* >60 TSH 7.0 uIU/mL 10/31/2016 12:20 PM FREE T4 1.22 10/31/2016 12:49 PM TSH 2.750 uIU/mL History Of Immunizations Name Date Admin Mfg Name Mfg Code Trade Name Lot# Route Inj Vis Given Vis Pub CVX Influenza 06/24/2012 sanofi pasteur PMC Fluzone [id number] Intramuscular Left Arm 06/24/2012 12/03/2011 141 Tdap 12/22/2014 sanofi pasteur PMC ADACEL [id number] Intramuscular Left Deltoid 12/22/2014 10/09/2012 115 X 12/22/2014 Hjiiy-Txgwme-Fltosqf-Praxis WAL Prevnar [id number] Intramuscular Right Deltoid 12/22/2014 07/30/2012 100 Pneumococcal 12/22/2014 Tpmvn-Yscgvb-Lvvzjaz-Praxis WAL Prevnar 13 [id number] Intramuscular Right Deltoid 12/22/2014 07/30/2012 133 X 12/22/2014 Rpkbr-Tfgjhp-Zxjhyaw-Praxis WAL Prevnar 13 [id number] Intramuscular Right Deltoid 12/22/2014 07/30/2012 133 Tdap 12/22/2014 sanofi pasteur PMC ADACEL [id number] Intramuscular Left Deltoid 12/22/2014 07/30/2012 115 Influenza 04/01/2015 Not Entered NE Not Entered Not Entered Not Entered 06/03/2016 06/03/2016 141 Influenza 01/19/2016 Not Entered NE Fluzone Intramuscular Right Arm 06/03/2016 141 History of Past Illness Name Date [...] Right hip pain Dec 03 2016 2:35PM Payers Insurance Name Company Name Plan Name Plan Number Policy Number Policy Group Number Start Date Medicare Part A Medicare Part A [id number] N/A BCBS Bcbs [place] [place] [id number] June Medicare Part A Medicare Part A [id number] N/A Medicare Part A Medicare - Lab/Xray [id number] N/A Medicare Part B Medicare Of [place] [id number] Sunday, May 03, 1998 History of Encounters Visit Date Visit Type Provider 12/03/2016 Office visit Tyler Conley NP 04/04/2015 Office visit Ludwin Leong MD 12/27/2014 Office visit Candido August MD 12/22/2014 Office visit 12/22/2014 Office visit Ludwin Leong MD 12/17/2014 [facility] Candido August MD 09/23/2014 Office visit Ludwin Leogn MD 07/13/2014 Office visit Ludwin Leong MD [...] visit Ludwin Leong MD 11/23/2009 Office visit Zelad WIGGINS 07/14/2009 Office visit Ludwin Leong MD 02/18/2009 Office visit Ludwin Leong MD
--- OUTSIDE RECORDS SUMMARY | 2018-07-09 08:10 | XMS REPORT ---
Author Author Ludwin Leong [facility] Address [address] [place], [place] [address] Care Team Providers Care Mixing Place Supervisor Name Role Phone Ludwin Leong PCP Unavailable [...] by oral route daily 1 metoprolol succinate 50 mg oral tablet extended release 24 hr 12/22/201404/21 take 1 tablet (50 mg) by oral route once daily for 30 days sertraline 50 mg oral tablet 12/22/2014 11/17/2015 take 1 tablet by oral route 2 times a day for 30 days metoprolol tartrate 50 mg oral tablet 02/14/2015 TAKE ONE TABLET BY MOUTH TWICE DAILY levothyroxine 50 mcg oral tablet 03/22/2015 TAKE ONE TABLET BY MOUTH EVERY DAY Valtrex 1 gram oral tablet 04/04/2015 04/24/2015 take 1 tablet (1,000 mg) by oral route 3 times per day for 10 days Name Start Date Expiration Date SIG Comments NORVASC 5MG TAB 5 each 09/05/2010 10/05/2010 1QD - TAKE ONE TABLET BY MOUTH EVERY DAY Xanax 0.25 mg oral tablet 09/22/2010 10/14/2010 [id number] - TAKE ONE TABLET BY MOUTH EVERY [...] ONE TABLET BY MOUTH EVERY DAY alprazolam 0.25 mg oral tablet 05/18/2013 08/14/2013 TAKE ONE TABLET BY MOUTH EVERY 12 HOURS NEEDED FOR ANXIETY Prilosec 20 mg oral capsule,delayed release(/EC) 12/14/2013 03/09/2015 take 1 capsule (20 mg) [...] AM Flu Injection 3 Years And Above [facility]# [address]-79 RHC Reviewed 08/24/2013 12:00 AM X-RAY EXAM OF HIP Reviewed 11/23/2009 12:00 AM ROUTINE VENIPUNCTURE Reviewed 11/23/2009 12:00 AM COMPLETE CBC W/AUTO DIFF WBC Reviewed 11/23/2009 12:00 AM COMPREHEN METABOLIC PANEL Reviewed 11/23/2009 12:00 AM CHEST X-RAY 2VW FRONTAL&LATL Reviewed 11/23/2009 12:00 AM THER/PROPH/DIAG INJ SC/IM Reviewed 11/23/2009 12:00 AM Bicillin CR (1.2) [facility]# [id number]--[facility] Clinic Reviewed 05/17/2010 12:00 AM FLU VACCINE 3 YRS & > IM Reviewed 04/13/2014 12:00 AM COMPUTER DX MAMMOGRAM ADD-ON Reviewed 09/23/2014 12:00 AM Decadron 8 mg [facility]# [address]-85 Reviewed 09/23/2014 12:00 AM Depo-Medrol 80 mg [facility]#[address]-39 Reviewed 01/03/2011 12:00 AM Decadron Inj.1mg-([place]) [facility] #[id number] Reviewed 01/03/2011 12:00 AM Depo-Medrol 80 Mg Im/[place] [facility] [id number] Reviewed 12/22/2014 12:00 AM COMPLETE CBC W/AUTO [...] CVX Influenza 06/24/2012 sanofi pasteur PMC Fluzone [id number] Intramuscular Left Arm 06/24/2012 12/03/2011 141 Tdap 12/22/2014 sanofi pasteur PMC ADACEL [id number] Intramuscular Left Deltoid 12/22/2014 10/09/2012 115 Pneumococcal 12/22/2014 Jnulf-Bkwybw-Upmpycr-Praxis WAL Prevnar [id number] Intramuscular Right Deltoid 12/22/2014 07/30/2012 100 PCV 12/22/2014 Odnum-Fbisyp-Rlcekqy-Praxis WAL Prevnar 13 [id number] Intramuscular Right Deltoid 12/22/2014 07/30/2012 133 Pneumococcal 12/22/2014 Xilwf-Yzisxc-Lnbaphg-Praxis WAL Prevnar 13 [id number] Intramuscular Right Deltoid 12/22/2014 07/30/2012 133 Tdap 12/22/2014 [facility] ADACEL [id number] Intramuscular Left Deltoid 12/22/2014 07/30/2012 115 History of Past Illness Name Date of [...] 2014 2:02PM Shingles Apr 04 2015 1:36PM Payers Insurance Name Company Name Plan Name Plan Number Policy Number Policy Group Number Start Date Medicare Part A Medicare Part A [id number] N/A [id number] June Medicare Part A Medicare Part A [id number] N/A Medicare Part B Medicare Of [place] [id number] Thursday, 1997 History of Encounters Visit Date Visit Type Provider 04/04/2015 Office visit Ludwin Leong MD 12/27/2014 Office visit Candido August MD 12/22/2014 Office visit Ludwin Leong MD 12/17/2014 [facility] Candido August MD 09/23/2014 Office [...]
[2018-07-09] MEDS ORDERED: LACTATED RINGERS 1,000 ML IV PRN (08:11)
--- OUTSIDE RECORDS SUMMARY | 2018-07-09 08:11 | XMS REPORT ---
Author Author Ludwin Leong [facility] Address [address] [place], [place] [address] Care Team Providers Care Caramel Coloring Operator Name Role Phone Ludwin Leong PCP Unavailable [...] Xanax Oral Tablet 0.25 mg 09/22/2010 10/14/2010 [id number] - TAKE ONE TABLET BY MOUTH EVERY [...] Vis Given Vis Pub CVX Influenza 06/24/2012 [facility] PMC Fluzone [id number] Intramuscular Left Arm 06/24/2012 12/03/2011 141 History [...] 2014 10:53AM Cough Dec 22 2014 10:53AM Payers Insurance Name Company Name Plan Name Plan Number Policy Number Policy Group Number Start Date Medicare Part A Medicare Part A [id number] N/A [id number] June Medicare Part A Medicare Part A [id number] N/A Medicare Part B Medicare Of [place] [id number] Thursday, 1997 History of Encounters Visit Date Visit Type Provider 12/22/2014 Office visit Ludwin Leong MD 09/23/2014 Office visit Ludwin Leong MD 07/13/2014 Office visit Ludwin Leong MD 12/14/2013 Office visit Ludwin Leong MD 08/24/2013 Office visit Ludwin Leong MD 04/16/2013 Office visit Lduwin Leong MD 01/15/2013 Office visit Ludwin Leong [...]
--- OUTSIDE RECORDS SUMMARY | 2018-07-09 08:11 | XMS REPORT ---
Author Author Ludwin Leong [facility] Address [address] [place], [place] [address] Care Team Providers Care Clinical Trials Systems Administrator Name Role Phone Ludwin Leong PCP Unavailable [...] 3 times per day for 10 days sertraline 100 mg oral tablet 04/05/2015 TAKE ONE TABLET BY MOUTH TWICE DAILY Name Start Date Expiration Date SIG Comments NORVASC 5MG TAB 5 each 09/05/2010 10/05/2010 1QD - TAKE ONE TABLET BY MOUTH EVERY DAY Xanax 0.25 mg oral tablet 09/22/2010 10/14/2010 [id number] - TAKE ONE TABLET BY MOUTH EVERY [...] 04/04/2015 12:00 AM Decadron, Per 1 Mg [facility]# [address]-47 Reviewed 04/04/2015 12:00 AM Depo-Medrol, Per 80 Mg [facility]#[address]-74 Reviewed 04/04/2015 12:00 AM MAMMOGRAM ONE BREAST Returned 05/30/2011 12:00 AM ASSAY THYROID STIM HORMONE Reviewed 06/24/2012 12:00 AM Flu Injection 3 Years And Above [facility]# [address]-60 RHC Reviewed 08/24/2013 12:00 AM X-RAY EXAM OF HIP Reviewed 11/23/2009 12:00 AM ROUTINE VENIPUNCTURE Reviewed 11/23/2009 12:00 AM COMPLETE CBC W/AUTO DIFF WBC Reviewed 11/23/2009 12:00 AM COMPREHEN METABOLIC PANEL Reviewed 11/23/2009 12:00 AM CHEST X-RAY 2VW FRONTAL&LATL Reviewed 11/23/2009 12:00 AM THER/PROPH/DIAG INJ SC/IM Reviewed 11/23/2009 12:00 AM Bicillin CR (1.2) [facility]# [id number]--[facility] Clinic Reviewed 05/17/2010 12:00 AM FLU VACCINE 3 YRS & > IM Reviewed 04/13/2014 12:00 AM COMPUTER DX MAMMOGRAM ADD-ON Reviewed 09/23/2014 12:00 AM Decadron 8 mg [facility]# [address]-98 Reviewed 09/23/2014 12:00 AM Depo-Medrol 80 mg [facility]#[address]-87 Reviewed 01/03/2011 12:00 AM Decadron Inj.1mg-([place]) [facility] #[id number] Reviewed 01/03/2011 12:00 AM Depo-Medrol 80 Mg Im/[facility] [place] [facility] [id number] Reviewed 12/22/2014 12:00 AM COMPLETE CBC W/AUTO [...] CVX Influenza 06/24/2012 sanofi pasteur PMC Fluzone [id number] Intramuscular Left Arm 06/24/2012 12/03/2011 141 Tdap 12/22/2014 sanofi pasteur PMC ADACEL [id number] Intramuscular Left Deltoid 12/22/2014 10/09/2012 115 Pneumococcal 12/22/2014 Idbsr-Jlgaug-OgxdobfTony Ruiz [id number] Intramuscular Right Deltoid 12/22/2014 07/30/2012 100 PCV 12/22/2014 Fuebw-Hdsocp-Cdkplgt-Praxis WAL Prevnar 13 [id number] Intramuscular Right Deltoid 12/22/2014 07/30/2012 133 Pneumococcal 12/22/2014 Jexnk-Nutdzp-[place]ve-Praxis WAL Prevnar 13 [id number] Intramuscular Right Deltoid 12/22/2014 07/30/2012 133 Tdap 12/22/2014 [facility] ADACEL [id number] Intramuscular Left Deltoid 12/22/2014 07/30/2012 115 History [...] High Risk Patient Apr 04 2015 4:57PM Payers Insurance Name Company Name Plan Name Plan Number Policy Number Policy Group Number Start Date Medicare Part A Medicare Part A [id number] N/A Bcbs [employer] [place] [id number] June Medicare Part A Medicare Part A [id number] N/A Medicare Part B Medicare Of [place] [id number] Thursday, 1997 History of Encounters Visit Date Visit Type Provider 04/04/2015 Office visit Ludwin Leong MD 12/27/2014 Office visit Candido August MD 12/22/2014 Office visit Ludwin Leong MD 12/17/2014 [facility] Candido August MD 09/23/2014 Office visit Ludwin Leong MD 07/13/2014 Office visit Ludwin Leong MD 12/14/2013 Office visit Ludwin Leong MD 08/24/2013 Office visit Ludwin Lenog MD 04/16/2013 Office visit Ludwin Leong MD [...]
--- OUTSIDE RECORDS SUMMARY | 2018-07-09 08:12 | XMS REPORT ---
Author Author Ludwin Leong [facility] Address [address] [place], [place] [id number] Care Team Providers Care Public Health Epidemiologist Name Role Phone Ludwin Leong PCP Ludwin [...] BY MOUTH ONCE DAILY BEFORE A MEAL levothyroxine 50 mcg oral tablet 05/07/2016 TAKE ONE TABLET BY MOUTH ONCE DAILY omeprazole 20 mg oral capsule,delayed release(DR/EC) 07/23/2016 TAKE ONE CAPSULE BY MOUTH ONCE DAILY BEFORE A MEAL hydrochlorothiazide 25 mg oral tablet 02/14/2017 02/09/2018 TAKE ONE TABLET BY MOUTH ONCE DAILY alprazolam 0.25 mg oral tablet 03/08/2017 06/04/2017 TAKE ONE TABLET BY MOUTH EVERY 12 HOURS NEEDED FOR ANXIETY Myrbetriq 25 mg oral tablet extended release 24 hr 05/20/2017 06/19/2017 take 1 tablet (25 mg) by oral route once daily swallowing whole with water. Do not crush, chew and/or divide. for 30 days Diflucan 150 mg oral tablet 05/20/2017 take 1 tablet (150 mg) by oral route once Name Start Date Expiration Date SIG Comments NORVASC 5MG TAB 5 each 09/05/2010 10/05/2010 1QD - TAKE ONE TABLET BY MOUTH EVERY DAY Xanax 0.25 mg oral tablet 09/22/2010 10/14/2010 [id number] - TAKE ONE TABLET BY MOUTH EVERY [...] 3 times per day for 10 days amlodipine 10 mg oral tablet 03/25/2017 03/25/2017 TAKE ONE TABLET BY MOUTH ONCE DAILY sertraline 50 mg oral tablet 04/17/2017 04/17/2017 TAKE ONE TABLET BY MOUTH TWICE DAILY Discontinued Name Start Date Discontinued Date SIG [...] rpm 97.6 F 147 lbs 66 in 23.73 kg/m2 1.76 m2 94 % 12/03/2016 2:17:00 PM 132 mmHg 62 mmHg 78 bpm 18 rpm 100.5 F 142.375 lbs 66 in 22.9797 kg/m 1.7342 m 94 % 04/04/2015 1:33:00 PM 126 mmHg [...] 12:00 AM Decadron, Per 1 Mg [facility]# [address]-38 Reviewed 04/04/2015 12:00 AM Depo-Medrol, Per 80 Mg [facility]#[id number] Reviewed 04/04/2015 12:00 AM MAMMOGRAM ONE BREAST Reviewed 05/30/2011 12:00 AM ASSAY THYROID STIM HORMONE Reviewed 04/05/2016 12:00 AM MAMMOGRAM SCREENING Reviewed 12/03/2016 12:00 AM X-RAY EXAM OF PELVIS Reviewed 12/03/2016 12:00 AM X-RAY EXAM OF HIP Reviewed 03/18/2017 12:00 AM MAMMOGRAM SCREENING Returned 06/24/2012 12:00 AM Flu Injection 3 Years And Above [facility]# [id number] RHC Reviewed 08/24/2013 12:00 AM X-RAY EXAM OF HIP Reviewed 11/23/2009 12:00 AM ROUTINE VENIPUNCTURE Reviewed 11/23/2009 12:00 AM COMPLETE CBC W/AUTO DIFF WBC Reviewed 11/23/2009 12:00 AM COMPREHEN METABOLIC PANEL Reviewed 11/23/2009 12:00 AM CHEST X-RAY 2VW FRONTAL&LATL Reviewed 11/23/2009 12:00 AM THER/PROPH/DIAG INJ SC/IM Reviewed 11/23/2009 12:00 AM Bicillin CR (1.2) [facility]# [id number]--[facility] Reviewed 05/17/2010 12:00 AM FLU VACCINE 3 YRS & > IM Reviewed 04/13/2014 12:00 AM COMPUTER DX MAMMOGRAM ADD-ON Reviewed 09/23/2014 12:00 AM Decadron 8 mg [facility]# [id number] Reviewed 09/23/2014 12:00 AM Depo-Medrol 80 mg [facility]#[id number] Reviewed 01/03/2011 12:00 AM Decadron Inj.1mg-([facility] #[id number] Reviewed 01/03/2011 12:00 AM Depo-Medrol 80 Mg Im/[facility] [place] [facility] [id number] Reviewed 12/22/2014 12:00 AM COMPLETE CBC W/AUTO [...] CVX Influenza 06/24/2012 [facility] Fluzone [id number] Intramuscular Left Arm 06/24/2012 12/03/2011 141 Tdap 12/22/2014 [employer] [facility] ADACEL [id number] Intramuscular Left Deltoid 12/22/2014 10/09/2012 115 X 12/22/2014 Vakdx-Jzszml-LutjnprShen [facility] Prevnar [id number] Intramuscular Right Deltoid 12/22/2014 07/30/2012 100 Pneumococcal 12/22/2014 Mxppz-Hciuwv-Euhtdzr-Praxis [facility] Prevnar 13 [id number] Intramuscular Right Deltoid 12/22/2014 07/30/2012 133 X 12/22/2014 Rriuy-Ihlqit-Yvdovuh-Praxis [facility] Prevnar 13 [id number] Intramuscular Right Deltoid 12/22/2014 07/30/2012 133 Tdap 12/22/2014 [facility] ADACEL [id number] Intramuscular Left Deltoid 12/22/2014 07/30/2012 115 Influenza 04/01/2015 Not Entered NE Not Entered Not Entered Not Entered 06/03/2017 06/03/2017 141 Influenza 01/19/2016 Not Entered NE Fluzone Intramuscular Right Arm 06/03/2017 141 [facility]30[facility]uzone High-Dose UI 824 AA Intramuscular Right [...] 2017 10:22AM Thrush May 20 2017 10:22AM Payers Insurance Name Company Name Plan Name Plan Number Policy Number Policy Group Number Start Date Medicare Part A Medicare Part A [id number] N/A [id number] June Medicare Part A Medicare Part A [id number] N/A Medicare Part A Medicare - Lab/Xray [id number] N/A Medicare Part B Medicare Of [place] [id number] Sunday, May 03, 1998 History of Encounters [...]
--- OUTSIDE RECORDS SUMMARY | 2018-07-09 08:13 | XMS REPORT ---
Author Author Ludwin Leong [facility] Address [address] [place], [place] [id number] Care Team Providers Care Grounds Caretaker Name Role Phone Ludwin Leong PCP Unavailable [...] before a meal for 90 days meloxicam oral tablet 15 mg 12/14/2013 12/09/2014 take 1 tablet (15 mg) by oral route once daily prn sertraline oral tablet 100 mg 01/27/2014 TAKE ONE TABLET BY MOUTH TWICE DAILY Norvasc oral Tablet 5 mg 03/01/2010 Oral 1 tablet (5 mg) by oral route daily 1 sertraline oral tablet 100 mg 03/30/2014 TAKE ONE TABLET BY MOUTH TWICE DAILY Name Start Date Expiration Date SIG Comments NORVASC 5MG TAB 5 each 09/05/2010 10/05/2010 1QD - TAKE ONE TABLET BY MOUTH EVERY DAY Xanax Oral Tablet 0.25 mg 09/22/2010 10/14/2010 [id number] - TAKE ONE TABLET BY MOUTH EVERY [...] oral route once daily for 4 days metoprolol tartrate Oral tablet 50 mg 12/30/2011 01/29/2012 TAKE ONE TABLET BY MOUTH TWICE DAILY sertraline Oral tablet 100 mg 11/19/2012 11/14/2013 take 1 tablet bid levothyroxine oral tablet 50 mcg 02/11/2013 03/13/2013 TAKE ONE TABLET BY MOUTH EVERY DAY HYDROCHLOROTHIAZIDE 25MG TAB 25MG each 03/31/2013 04/30/2013 TAKE ONE TABLET BY MOUTH EVERY DAY alprazolam Oral tablet 0.25 mg 05/18/2013 08/14/2013 TAKE ONE TABLET BY MOUTH EVERY 12 HOURS NEEDED FOR ANXIETY Zithromax Z-Jarad oral tablet 250 mg 06/01/2014 [...] oral route once daily for 10 days Discontinued Name Start Date [...] List Description Status Onset Anxiety Active Heart Disease Active Thyroid disorder Active Vital Signs Date Time BP-Sys(mm[Hg] BP-Velvet(mm[Hg]) HR(bpm) RR(rpm) Temp WT HT HC BMI BSA BMI Percentile O2 Sat(%) 09/23/2014 10:50:00 AM 128 mmHg 62 mmHg [...] 12:00 AM COMPUTER DX MAMMOGRAM ADD-ON Reviewed Results Summary Data and Description Results [...] 0.50 mg/dLCALCIUM 9.30 mg/dLeGFR >60 mL/min/1.73 m2 History Of Immunizations Name Date Admin Mfg Name Mfg Code Trade Name Lot# Route Inj Vis Given Vis Pub CVX Influenza 06/24/2012 [facility] PMC Fluzone [id number] Intramuscular Left Arm 06/24/2012 12/03/2011 141 History of Past Illness Name Date of Onset Comments Anxiety Breast disorder, unspecified Cancer Heart Disease Thyroid disorder Hypertension Jul 14 2009 3:29PM [...] 2:01PM Rhus dermatitis Sep 23 2014 10:58AM Payers Insurance Name Company Name Plan Name Plan Number Policy Number Policy Group Number Start Date Medicare Part A Medicare Part A [id number] N/A [employer] [place] [id number] June Medicare Part A Medicare Part A [id number] N/A Medicare Part B Medicare Of [place] [id number] Thursday, 1997 History of Encounters Visit Date Visit Type Provider 09/23/2014 Office visit Ludwin Leong MD 07/13/2014 [...]
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
[2018-07-09] MEDS ORDERED: ceFAZolin INJECTION 1,000 MG in WATER (STERILE) FOR INJECTION 10 ML IV ONE (08:15)
--- NOTE | 2018-07-09 08:33 | Progress Note-Pre Operative ---
Pre-Operative Progress Note H&P Reviewed The H&P was reviewed, patient examined and no changes noted. Date Seen by Provider: Jul 09, 2018 Time Seen by Provider: 08:33 Date H&P Reviewed: Jul 09, 2018 Time H&P Reviewed: 08:33 Pre-Operative Diagnosis: Unused infusaport JESSI VALLE MD Jul 09, 2018 08:33
--- NOTE | 2018-07-09 08:36 | History & Physicial ---
History of Present Illness History of Present Illness Reason for visit/HPI For removal of infusaport Date of Admission 07/09/18 Date Seen by a Provider: Jul 09, 2018 Time Seen by a Provider: 08:34 I consulted on this patient on 07/09/18 08:33 Attending Physician Jessi Valle MD Admitting Physician Ludwin Leong MD Consult Allergies and Home Medications Allergies Coded Allergies: No Known Drug Allergies (Unverified , 07/01/18) Home Medications Amiodarone HCl 200 Mg Tablet, 100 MG PO DAILY, (Reported) Amlodipine Besylate 10 Mg Tablet, 10 MG PO DAILY, (Reported) Mirabegron 25 Mg Tab.er.24h, 25 MG PO DAILY, (Reported) Omeprazole 20 Mg Capsule.dr, 20 MG PO DAILY, (Reported) Sertraline HCl 50 Mg Tablet, 50 MG PO DAILY, (Reported) Patient Home Medication List Home Medication List Reviewed: Yes Past Pbilbgh-[id number]-Fsfaxb Hx Patient Social History Employed/Student: retired Recent Foreign Travel: No Contact w/other who traveled: No Surgeries Yes (MASTECTOMY, PORT. TOTAL HIP REPLACEMENT) Review of Systems Constitutional: no symptoms reported EENTM: no symptoms reported Respiratory: no symptoms reported Cardiovascular: no symptoms reported Gastrointestinal: no symptoms reported Genitourinary: no symptoms reported Musculoskeletal: no symptoms reported Skin: no symptoms reported Psychiatric/Neurological: No Symptoms Reported Physical Exam Vital Signs Capillary Refill : Height, Weight, BMI Height: '" Weight: lbs. oz. kg; BMI Method: General Appearance: No Apparent Distress Respiratory: Lungs Clear Cardiovascular: Regular Rate, Rhythm Gastrointestinal: Non Tender, Soft Neurologic/Psychiatric: Alert, Oriented x3 Skin: Warm/Dry Assessment/Plan Assessment and Plan For removal of unused infusport Admission Diagnosis Admission Status: Other (Outpt Proc) JESSI VALLE MD Jul 09, 2018 08:36
[2018-07-09] MEDS ORDERED: BUP/EPI 0.5% 1:200,000 (SENSORCAINE) 30 ML VIAL ONE (09:58)
[2018-07-09] MEDS ORDERED: fentaNYL INJECTION 100 MCG/2 ML AMP ONE (10:10)
[2018-07-09] MEDS ORDERED: PROPOFOL INJECTION 50 ML IV ONE (10:59)
[2018-07-09] MEDS ORDERED: ONDANSETRON 4 MG/2 ML (SDV) Z0FRAN ONE (10:59)
[2018-07-09] MEDS ORDERED: TRAM50TA2 PO (11:05)
--- NOTE | 2018-07-09 11:06 | Discharge Inst-Simple/Standard ---
Discharge Inst-Standard Discharge Medications New, Converted or Re-Newed RX: RX on Chart Patient Instructions/Follow Up Plan of Care/Instructions/FU: Band-Aids off in 48 hours. Call if any concerns arise Activity as Tolerated: Yes Discharge Diet: No Restrictions JESSI VALLE MD Jul 09, 2018 11:06
--- NOTE | 2018-07-09 11:20 | Operative Report ---
Operative Report Date of Procedure/Surgery Jul 09, 2018 Surgeon (s) JESSI VALLE MD Hunter Trapper (s): N/A Post-Operative Diagnosis same Procedure Performed removal of Groshong catheter Description of Procedure Anesthesia Type: MAC Estimated blood loss (mL): minimal Specimen(s) collected/removed none Description of the Procedure Indication for the procedure: This lady had completed adjuvant therapy following management of breast carcinoma several years ago. After an adequate discussion with her oncologist, it was felt reasonable to remove the Groshong catheter placed along the right subclavian vein. Informed consent was obtained after reviewing the procedure in detail. Description of procedure: She was placed supine on the operative table and our INSURANCE VERIFICATION CLERK administered sedation, monitoring of vital signs. A gram of Ancef was administered intravenously as prophylaxis against wound infection. Right infraclavicular fossa was prepared and draped in the usual sterile manner. Local anesthesia was achieved using 0.5 percent Marcaine with epinephrine. A secondary incision was made along the previous scar and the Groshong catheter removed without risking air embolism. The pocket was irrigated with saline and the incision closed using 3-0 Vicryl for the dermal layer and 4-0 Vicryl for skin, in a subcuticular fashion. Steri-Strips and a nonadherent dressing were then applied. She tolerated the procedure well and was taken to the nursing area in a stable condition. Findings of the Procedure see operative report Allergies and Home Medications Allergies Coded Allergies: No Known Drug Allergies (Unverified , 07/01/18) Home Medications Amiodarone HCl 200 Mg Tablet, 100 MG PO DAILY, (Reported) Amlodipine Besylate 10 Mg Tablet, 10 MG PO DAILY, (Reported) Mirabegron 25 Mg Tab.er.24h, 25 MG PO DAILY, (Reported) Omeprazole 20 Mg Capsule.dr, 20 MG PO DAILY, (Reported) Sertraline HCl 50 Mg Tablet, 50 MG PO DAILY, (Reported) Tramadol HCl 50 Mg Tablet, 50 MG PO Q12H Prescribed by: JESSI VALLE on 07/09/18 1105 Patient Home Medication List Home Medication List Reviewed: Yes JESSI VALLE MD Jul 09, 2018 11:20
[2018-07-09] MEDS ORDERED: morphine INJ 10 MG/ML 1ML (SYR OR VIAL) IVP ONE (11:30)
[2018-07-09] MEDS ORDERED: MEPERIDINE (DEMEROL) INJ 50 MG/ML IVP ONE (11:30)
[2018-07-09] MEDS ORDERED: ONDANSETRON 4 MG/2 ML (SDV) Z0FRAN IVP PRN (11:30)
[2018-07-09 12:00] VITALS: BP 160/68
--- NOTE | 2018-07-09 12:29 | Anesthesia-General Post-Op ---
MAC Patient Condition Mental Status/LOC: Same as Preop Cardiovascular: Satisfactory Nausea/Vomiting: Absent Respiratory: Satisfactory Pain: Controlled Complications: Absent Post Op Complications Complications None Follow Up Care/Instructions Patient Instructions None needed. Anesthesiology Discharge Order Discharge Order Patient is doing well, no complaints, stable vital signs, no apparent adverse anesthesia problems. No complications reported per nursing. SAMANTHA RAI CRNA Jul 09, 2018 12:29
[2018-07-09 12:30] VITALS: BP 159/69
== END 2018-07-09 12:50 | disposition home or self-care (01) ==
LOC: SDC 08:01
PROVIDERS: ATTEND Surgery
DX: Z08 Encounter for follow-up examination after completed treatment for malignant neoplasm (principal); Z85.3 Personal history of malignant neoplasm of breast; Z90.10 Acquired absence of unspecified breast and nipple; I10 Essential (primary) hypertension; I48.91 Unspecified atrial fibrillation; F41.9 Anxiety disorder, unspecified; F32.9 Major depressive disorder, single episode, unspecified; K21.9 Gastro-esophageal reflux disease without esophagitis; Z96.649 Presence of unspecified artificial hip joint; Z79.899 Other long term (current) drug therapy
CPT/HCPCS: 87081

== ENCOUNTER → 2019-04-08 | Outpatient (CLI) | payer MEDICARE ==
[~2019-04-08] MED LIST changes: -OMEP20CA12 PO; +OMEP20CA13 PO; +TRAM50TA2 PO
[2019-04-08 09:53] LABS: BASOPHILS # (AUTO) 0.1 10^3/uL (0.0-0.1); BASOPHILS % (AUTO) 1 % (0-10); EOSINOPHILS # (AUTO) 0.2 10^3/uL (0.0-0.3); EOSINOPHILS % (AUTO) 2 % (0-10); HEMATOCRIT 42 % (35-52); HEMOGLOBIN 14.2 G/DL (11.5-16.0); LYMPHOCYTES # (AUTO) 2.9 X 10^3 (1.0-4.0); LYMPHOCYTES % (AUTO) 30 % (12-44); MEAN CORPUSCULAR HEMOGLOBIN 30 PG (25-34); MEAN CORPUSCULAR HGB CONC 34 G/DL (32-36); MEAN CORPUSCULAR VOLUME 89 FL (80-99); MEAN PLATELET VOLUME 10.1 FL (7.4-10.4); MONOCYTES # (AUTO) 0.7 X 10^3 (0.0-1.0); MONOCYTES % (AUTO) 7 % (0-12); NEUTROPHILS # (AUTO) 5.9 X 10^3 (1.8-7.8); NEUTROPHILS % (AUTO) 61 % (42-75); PLATELET COUNT 167 10^3/uL (130-400); RED CELL DISTRIBUTION WIDTH 13.6 % (10.0-14.5); WHITE BLOOD COUNT 9.7 10^3/uL (4.3-11.0)
[2019-04-08 10:08] LABS: BUN/CREATININE RATIO 19; CALCIUM 9.8 MG/DL (8.5-10.1); CARBON DIOXIDE 25 MMOL/L (21-32); CHLORIDE 108 MMOL/L (98-107); CREATININE SERUM 0.84 MG/DL (0.60-1.30); GFR ESTIMATED > 60; GLUCOSE 111 MG/DL (70-105); POTASSIUM 4.2 MMOL/L (3.6-5.0); SODIUM 142 MMOL/L (135-145)
[2019-04-08 10:09] LABS: ALANINE AMINOTRANSFERASE 14 U/L (0-55); ALBUMIN 4.2 GM/DL (3.2-4.5); ALKALINE PHOSPHATASE 69 U/L (40-136); BILIRUBIN,TOTAL 0.4 MG/DL (0.1-1.0); TOTAL PROTEIN 7.8 GM/DL (6.4-8.2)
== END ==
LOC: EDSTATUS 07-15 09:33 → ONC 09:35
PROVIDERS: ATTEND Internal Medicine Hematology & Oncology
DX: C50.912 Malignant neoplasm of unspecified site of left female breast (principal); I12.9 Hypertensive chronic kidney disease with stage 1 through stage 4 chronic kidney disease, or unspecified chronic kidney disease; N18.3 Chronic kidney disease, stage 3 (moderate); E03.9 Hypothyroidism, unspecified; M19.90 Unspecified osteoarthritis, unspecified site; F41.8 Other specified anxiety disorders; Z90.12 Acquired absence of left breast and nipple; Z92.21 Personal history of antineoplastic chemotherapy
CPT/HCPCS: 36415; 80053; 85025; 99213

== ENCOUNTER → 2019-04-08 | Outpatient (CLI) | payer MEDICARE | LOC: LABNPT 09:44 | PROVIDERS: ATTEND Family Medicine | DX: Z01.89 Encounter for other specified special examinations (principal) | CPT/HCPCS: 84443 ==